=== PATIENT | male | born 1955 | race Caucasian/White ===

== ENCOUNTER 2019-06-11 08:13 | Emergency (ER) | payer OTHER ==
[~2019-06-11] VITALS: Ht 177.8 cm; Wt 73.5 kg
--- OUTSIDE RECORDS SUMMARY | 2019-06-11 08:16 | XMS REPORT | Continuity of Care Document ---
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 Name Role Phone [employer] Unavailable Unavailable Problems Problem Status Onset Date Classification Date Reported Comments Source SHOULDER PAIN Active 05/13/2013 [facility] Chronic obstructive pulmonary disease Active Problem [facility]23[facility]2019 [facility] Hy[facility] Active Problem 05/23/2019 [facility] Medications Medication Details Route Status Patient Instructions Ordering Provider Order Date Source Amlodipine 10 MG / valsartan 160 MG Oral Tablet 1 tab, PO, Daily, # 30 tab, 0 Refill(s), Pharmacy: [facility] Active 08/15/[facility] haloperidol 2 mg oral tablet 2 mg=1 tab, PO, BID, # 90 tab, 0 Refill(s) Active 08/15/2018 [facility] lithium 450 mg oral tablet, extended release 450 mg=1 tab, PO, BID, # 60 tab, 0 Refill(s) Active 08/15/2018 [facility] Amlodipine 10 mg, PO, Daily, 0 Refill(s) Inactive 08/15/2018 [facility] Bupropion 150 mg, PO, 0 Refill(s) Active 08/15/2018 [facility] Toradol 10 mg oral tablet 10 mg, 1 tab, PO, Q8H, PRN, 15 tab, Pain, Substitution Allowed, TAB PO Active [place] 05/14/2013 [facility] Allergies, Adverse Reactions, Alerts Substance Category Reaction Severity Reaction type Status Date Reported Comments Source No Known Medication Allergies Assertion Drug allergy [facility] Immunizations Immunization Date Given Site Status Last Updated Comments Source influenza virus vaccine, inactivated<sup>1</sup> 08/15/2018 Right deltoid completed French Result Comment: None [facility] pneumococcal 23-valent vaccine<sup>2</sup> 08/15/2018 Left deltoid completed French Result Comment: None reaction [facility] Results No Data Provided for This Section Pathology Reports No Data Provided for This Section Diagnostic Reports No Data Provided for This Section Consultation Notes No Data Provided for This Section Discharge Summaries No Data Provided for This Section History and Physicals No Data Provided for This Section Vital Signs Vital Sign Value Date Comments Source Weight 75.568 08/15/2018 [facility] BMI Calculated 23.9 08/15/2018 [facility] Height 177.8 cm 08/15/2018 [facility] Heart Rate 67 08/15/2018 [facility] Temperature Oral (F) 97.5 F 08/15/2018 [facility] Systolic (mm Hg) 145 08/15/2018 [facility] Diastolic (mm Hg) 86 08/15/2018 [facility] Weight 68.182 05/14/2013 [facility] Height 175.26 cm 05/14/2013 [facility] Encounters Location Location Details Encounter Type Encounter Number Reason For Visit Attending Provider ADM Date DC Date Status Source [facility] Emergency [id number] LEONARDO SAMPSON 05/13/2013 05/14/2013 Discharged [facility] Outpatient [id number] THEODORE MCCOLLUM 08/15/2018 [facility] Outpatient [id number] Theodore Mccollum 08/15/2018 08/16/2018 [facility] Phone Message [id number] 05/19/2019 05/21/2019 [facility] Procedures No Data Provided for This Section Assessment and Plan No Data Provided for This Section Plan of Care No Data Provided for This Section Social History Social History Date Source Social History TypeResponse Smoking Status Former smoker; Exposure to Tobacco Smoke None; Cigarette Smoking Last 365 Days Yes; Reg Smoking Cessation Counseling No1 entered on: 08/15/18 1quit 3 months ago 08/15/2018 [facility] Social History TypeResponse Smoking Status Former smoker; Exposure to Tobacco Smoke None; Cigarette Smoking Last 365 Days Yes; Reg Smoking Cessation Counseling No1 entered on: 08/15/18 1quit 3 months ago 08/15/2018 [facility] Family History No Data Provided for This Section Advance Directives No Data Provided for This Section Functional Status No Data Provided for This Section
--- OUTSIDE RECORDS SUMMARY | 2019-06-11 08:17 | XMS REPORT | Summary of Care ---
Author Author [facility] Neurosurgery [facility] Organization [facility] Neurosurgery [facility] Address Unknown Phone Unavailable Encounter HQ [id number]_[email or web address](FIN) [id number] Date(s): 05/19/19 - 05/20/19 [facility] Neurosurgery [facility] [address] [place] [address]- Vital Signs No data available for this section Problem List Condition Effective Dates Status Health Status Informant Chronic obstructive Active pulmonary disease(Confirmed) Hypertension(Confirm Active ed) Allergies, Adverse Reactions, Alerts No Known Medication Allergies Medications No data available for this section Results No data available for this section Immunizations Given and Recorded Vaccine Date Status Refusal Reason influenza virus vaccine, inactivated1 08/15/18 Given pneumococcal 23-valent vaccine2 08/15/18 Given 1Result Comment: None reaction waited 15 min 2Result Comment: None reaction waited 15 min Procedures No data available for this section Social History Social History Type Response Smoking Status Former smoker; Exposure to Tobacco Smoke None; Cigarette Smoking Last 365 Days Yes; Reg Smoking Cessation Counseling No1 entered on: 08/15/18 1quit 3 months ago Assessment and Plan No data available for this section
--- OUTSIDE RECORDS SUMMARY | 2019-06-11 08:17 | XMS REPORT | Summary of Care ---
Author Author [facility] Address Unknown Phone Unavailable Encounter TRENA Miller(KAE) [id number] Date(s): 08/15/18 - 08/15/18 [place] [id number] [facility] [address] [place] [address] [phone] Discharge Disposition: Home or Self Care Attending Physician: Valerie Chan MD Vital Signs Most recent to 1 oldest [Reference Range]: Height 177.8 cm (08/15/18 2:26 PM) Temperature Oral 97.5 DegF [96.4-99.1 DegF] (08/15/18 2:26 PM) Blood Pressure 145/86 mmHg [90-140/60-90 mmHg] *HI* (08/15/18 2:26 PM) Peripheral Pulse 67 bpm Rate [60-100 bpm] (08/15/18 2:26 PM) Weight 75.568 kg (08/15/18 2:26 PM) Body Mass Index 23.9 m2 (08/15/18 2:26 PM) Problem List Condition Effective Dates Status Health Status Informant Chronic obstructive Active pulmonary disease(Confirmed) Hypertension(Confirm Active ed) Allergies, Adverse Reactions, Alerts No Known Medication Allergies Medications amLODIPine 10 mg, PO, Daily, 0 Refill(s) Start Date: 08/15/18 Stop Date: 08/15/18 Status: Discontinued amLODIPine-valsartan 10 mg-160 mg oral tablet 1 tab, PO, Daily, # 30 tab, 0 Refill(s), Pharmacy: [facility] Start Date: 08/15/18 Status: Ordered buPROPion 150 mg, PO, 0 Refill(s) Start Date: 08/15/18 Status: Ordered haloperidol 2 mg oral tablet 2 mg=1 tab, PO, BID, # 90 tab, 0 Refill(s) Start Date: 08/15/18 Status: Ordered lithium 450 mg oral tablet, extended release 450 mg=1 tab, PO, BID, # 60 tab, 0 Refill(s) Start Date: 08/15/18 Status: Ordered Results No data available for this section [...]
--- OUTSIDE RECORDS SUMMARY | 2019-06-11 08:17 | XMS REPORT | CCD ---
Author Author Auto Generated Organization [facility] Address Unknown Phone Unavailable Care Team Providers Care Purchasing And Claims Supervisor Name Role Phone Palomo Barajas CP Allergies, Adverse Reactions, Alerts Substance Reaction Status NKDA Active Medications Medication Instructions Start Date End Date Status Toradol 10 mg oral 10 mg, 1 tab, PO, Q8H, PRN, 15 tab, 05/13/2013 05/18/2013 Ordered tablet Pain, Substitution Allowed, TAB Vital Signs Most recent to oldest [Reference Range]: 1 Height 175.26 cm (05/13/2013 20:40:00) Weight 68.182 kg (05/13/2013 20:40:00)
--- OUTSIDE RECORDS SUMMARY | 2019-06-11 08:18 | XMS REPORT ---
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 Allergies, Adverse Reactions, Alerts Allergy Name Allergy Type Status Severity Reaction(s) Onset Date Inactive Date Treating Clinician Comments No Known Allergies DA Active U 2014-08-18 00:00:00 Medications This patient has no known medications. Results Test Description Test Time Test Comments Text Results Atomic Results Result Comments - XR CHEST 1 V 2019-06-07 16:39:00 FAX: Lisandra Khan MD [phone] [place]: St: ADM Name: AMNA BERKOWITZ [facility] : 1955 Age/S: 63/M [address] Unit #: [id number] Loc: [address] [address] Phys: Lisandra Norris MD Acct: [id number] Dis Date: Status: ADM IN PHONE #: [phone] Exam Date: 06/07/2019 1619 FAX #: [phone] Reason: PLEURAL EFFUSION EXAMS: CPT CODE: [id number] XR CHEST 1 V 71638 REASON FOR EXAM: PLEURAL EFFUSION EXAM ORDER DATE: 06/07/2019 4:12 PM Ordering Kayleigh: Lisandra Norris MD PROCEDURE: - XR CHEST 1 V COMPARISON: 06/03/2019 FINDINGS: Portable AP frontal view of the chest obtained at 4:19 PM shows clear lungs without evidence of consolidation. There is no evidence of effusion. The heart size is within normal limits. Pulmonary vasculatures are unremarkable. IMPRESSION: Persistent mild elevation of the left hemidiaphragm at 1638 Reported and signed by: Xavi Nugent M.D. CC: Lisandra Norris MD Technologist: Viri Webber RT(R); CLARISA DIEHL RT(R) Trnscrd Date/Time/By: 06/07/2019 (6407) : By: [email or web address] Orig Print D/T: S: 06/07/2019 (8011) PAGE 1 Signed Report - CTA ABD AORTA IF LWEX RO 2019-06-06 22:01:00 Name: AMNA BERKOWITZ [facility] : 1955 Age/S: 63 / M [address] [facility] Unit #: [id number] Loc: [place] [address] Phys: Nae Aguero NP Acct: [id number] Dis Date: Status: ADM IN PHONE #: [phone] Exam Date: 06/06/20192131 FAX #: [phone] Reason: EVALUATE AORTIC ANEURYSM EXAMS: CPT CODE: [id number] [place] [address] REASON FOR EXAM: EVALUATE AORTIC ANEURYSM EXAM ORDER DATE: 06/06/2019 5:42 PM Ordering Kayleigh: Nae Aguero NP PROCEDURE: - CTA ABD AORTA IF LWEX RO COMPARISON: FINDINGS: Axial images of the abdomen and lower extremities runoff were obtained with IV contrast using CT angiogram protocol. Reconstructed sagittal and coronal images from the axial data were provided. Dose modulation, iterative reconstruction, and/or weight based adjustment of the MA/KV was utilized to reduce the radiation dose to as low as reasonably achievable. Maximum intensity pixel, Volume rendered, Surface shaded rendering, and 3D reconstructed images of the abdominal aorta and lower extremities runoff were provided for interpretation. Intravenous contrast: 100c of Omnipaque 370 The iliac arteries are within normal limits. The renal arteries are within normal limits. The celiac trunk is unremarkable. The hepatic and splenic arteries are unremarkable. The superior mesenteric and inferior mesenteric arteries are within normal limits IMPRESSION: 1. 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 Unremarkable bilateral SFA and popliteal arteries 3. On the left, 2 vessels runoff in the anterior and posterior tibial arteries with a small caliber and atrophic patent dorsalis pedis artery 4. On the right, a single vessel runoff in the posterior tibial artery to the right foot with a patent plantar arch. The right dorsalis pedis artery is occluded at 2200 Reported and signed by: Xavi Nugent M.D. PAGE 1 Signed Report (CONTINUED) Name: AMNA BERKOWITZ [facility] : 1955 Age/S: 63 / M [address] [facility] Unit #: [id number] Loc: [place] [address] Phys: Nae Aguero NP Acct: [id number] Dis Date: Status: ADM IN PHONE #: [phone] Exam Date: 06/06/20192131 FAX #: [phone] Reason: EVALUATE AORTIC ANEURYSM EXAMS: CPT CODE: [id number] [place] [id number] <Continued> CC: Lisandra Norris MD; Nae Aguero NP Technologist:Stephie Barnard RT(R); MARQUITA Ross CTDI: DLP: Trnscb Date/Time: 06/06/2019 (2200) tTHALIA Orig Print D/T: S: 06/06/2019 (2203) PAGE 2 Signed Report LITHIUM 2019-06-04 19:54:00 LITHIUM (test code=LITH) <0.1 mmol/L 0.5-1.5 BASIC METABOLIC [id number] 10:18:00* Test Item Value Reference Range Comments SODIUM (test code=NA) 145 mmol/L 136-145 POTASSIUM (test code=K) 3.8 mmol/L 3.5-5.1 CHLORIDE (test code=CL) 110.0 mmol/L 98-107 CARBON DIOXIDE (test code=CO2) 27.0 mmol/L 21-32 ANION GAP (test code=GAP) 11.8 10-20 GLUCOSE (test code=GLU) 90 mg/dL 74-106 BLOOD UREA NITROGEN (test code=BUN) 17 mg/dL 7-18 GLOMERULAR FILTRATION RATE (test code=GFR) > 60 mL/min >=60 Estimated GFR by using Modified MDRD formula.Chronic kidney disease is defined as either kidney damageor GFR <60 mL/min/1.73 m2 for >3 months. CREATININE (test code=CREAT) 1.00 mg/dL 0.7-1.3 BUN/CREATININE RATIO (test code=BUN/CREA) 17.0 10-20 CALCIUM (test code=CA) 8.9 mg/dL 8.5-10.1 [id number] 10:18:00* Test Item Value Reference Range Comments PHOSPHORUS (test code=PHOS) 3.2 mg/dL 2.5-4.9 [id number] 10:18:00* Test Item Value Reference Range Comments MAGNESIUM (test code=MAG) 2.2 mg/dL 1.8-2.4 CALCIUM [id number] 10:18:00* Test Item Value Reference Range Comments CALCIUM IONIZED (test code=SHAKILA) 1.30 mmol/L 1.12-1.32 BASIC METABOLIC [id number] 10:04:00* Test Item Value Reference Range Comments SODIUM (test code=NA) 145 mmol/L 136-145 POTASSIUM (test code=K) 3.8 mmol/L 3.5-5.1 CHLORIDE (test code=CL) 110.0 mmol/L 98-107 CARBON DIOXIDE (test code=CO2) 27.0 mmol/L 21-32 ANION GAP (test code=GAP) 11.8 10-20 GLUCOSE (test code=GLU) 90 mg/dL 74-106 BLOOD UREA NITROGEN (test code=BUN) 17 mg/dL 7-18 GLOMERULAR FILTRATION RATE (test code=GFR) > 60 mL/min >=60 Estimated GFR by using Modified MDRD formula.Chronic kidney disease is defined as either kidney damageor GFR <60 mL/min/1.73 m2 for >3 months. CREATININE (test code=CREAT) 1.00 mg/dL 0.7-1.3 BUN/CREATININE RATIO (test code=BUN/CREA) 17.0 10-20 CALCIUM (test code=CA) 8.9 mg/dL 8.5-10.1 [id number] 10:04:00* Test Item Value Reference Range Comments PHOSPHORUS (test code=PHOS) 3.2 mg/dL 2.5-4.9 [id number] 10:04:00* Test Item Value Reference Range Comments MAGNESIUM (test code=MAG) 2.2 mg/dL 1.8-2.4 CALCIUM [id number] 10:04:00* Test Item Value Reference Range Comments CALCIUM IONIZED (test code=SHAKILA) mmol/L 1.12-1.32 CBC W/AUTO [id number] 08:54:00* Test Item Value Reference Range Comments WHITE BLOOD CELL (test code=WBC) 9.2 K/mm3 4.5-12.5 RED BLOOD CELL (test code=RBC) 4.10 mill/mm3 4.0-5.8 HEMOGLOBIN (test code=HGB) 11.6 gram/dL 13.0-17.5 HEMATOCRIT (test code=HCT) 38.0 % 42.0-52.0 MEAN CELL VOLUME (test code=MCV) 92.7 fL 80-98 MEAN CELL HGB (test code=MCH) 28.3 picogram 27.0-33.0 MEAN CELL HGB CONCETRATION (test code=MCHC) 30.5 gram/dL 33.0-36.0 RED CELL DISTRIBUTION WIDTH (test code=RDW) 13.5 % 11.6-16.2 RED CELL DISTRIBUTION WIDTH SD (test code=RDW-SD) 46.2 fL 37.0-51.0 PLATELET COUNT (test code=PLT) 238 K/mm3 150-450 MEAN PLATELET VOLUME (test code=MPV) 10.1 fL 6.7-11.0 NEUTROPHIL % (test code=NT%) 80.9 % 39.0-69.0 IMMATURE GRANULOCYTE % (test code=IG%) 0.5 % 0.0-5.0 LYMPHOCYTE % (test code=LY%) 9.2 % 25.0-55.0 MONOCYTE % (test code=MO%) 7.9 % 0.0-10.0 EOSINOPHIL % (test code=EO%) 1.3 % 0.0-5.0 BASOPHIL % (test code=BA%) 0.2 % 0.0-1.0 NUCLEATED RBC % (test code=NRBC%) 0.0 % 0-0 NEUTROPHIL # (test code=NT#) 7.45 K/mm3 1.8-7.7 IMMATURE GRANULOCYTE # (test code=IG#) 0.05 x10 3/uL 0-0.03 LYMPHOCYTE # (test code=LY#) 0.85 K/mm3 1.0-5.0 MONOCYTE # (test code=MO#) 0.73 K/mm3 0-0.8 EOSINOPHIL # (test code=EO#) 0.12 K/mm3 0.0-0.5 BASOPHIL # (test code=BA#) 0.02 K/mm3 0.0-0.2 NUCLEATED RBC # (test code=NRBC#) 0.00 K/mm3 0.0-0.1 MANUAL DIFF REQUIRED (test code=MDIFF) NO - XR CHEST 1 [id number] 07:28:00 FAX: Patsy Card MD [phone] [place]: St: [facility] FAX: Lisandra Khan MD [phone] Name: AMNA BERKOWITZ [facility] : 1955 Age/S: 63/M [address] [facility] Unit #: [id number] Loc: [place] [place] [address] Phys: Patsy Bales MD Acct: [id number] Dis Date: Status: ADM IN PHONE #: [phone] Exam Date: 06/02/2019627 FAX #: [phone] Reason: NG TUBE PLACEMENT EXAMS: CPT CODE: [id number] XR CHEST 1 V 75836 REASON FOR EXAM: NG TUBE PLACEMENT Exam Order Date: 06/02/2019 7:46 PM Ordering MSahil.: Patsy Bales MD PROCEDURE: - XR CHEST 1 V COMPARISON: AP chest x-ray previous evening at 6:19 PM FINDINGS: Elevation of the left hemidiaphragm with atelectatic changes in the left lung base and subsegmental atelectasis in the right retrocardiac space are redemonstrated. Remainder of the lungs are clear. Cardiomediastinal silhouette is normal in size for technique. The mediastinal contours are within normal limits. Musculoskeletal structures are within normal limits. Interval insertion of enteric suction tube into the stomach. IMPRESSION: Interval insertion of enteric suction tube into the stomach. Cardiopulmonary findings are unchanged. at 0728 Reported and signed by: Uriah Castro MD CC: Patsy Bales MD; Lisandra Norris MD Technologist: ЮЛИЯ HERNANDEZ JR Trnscrd Date/Time/By: 06/03/2019 (0728) : By: [email or web address] Orig Print D/T: S: 06/03/2019 (0731) PAGE 1 Signed Report - XR CHEST 1 [id number] 18:31:00 FAX: Lisandra Khan MD [phone] [place]: St: ADM Name: AMNA CONTRERAS [facility] : [birth year] Age/S: 63/M [address] Unit #: [id number] Loc: [address] [place] [address] Phys: Lisandra Norris MD Acct: [id number] Dis Date: Status: ADM IN PHONE #: [phone] Exam Date: 06/02/2019 1825 FAX #: [phone] Reason: NGTUBE PLACEMENT EXAMS: CPT CODE: [id number] XR CHEST 1 V 83661 REASON FOR EXAM: NGTUBE PL ACEMENT EXAM ORDER DATE: 06/02/2019 12:00 AM Ordering Kayleigh: Lisandra Norris MD PROCEDURE: - XR CHEST 1 V COMPARISON: 06/02/2019 at 7:44 AM FINDINGS: Portable AP frontal vi ew of the chest obtained at 6:21 PM shows patchy airspace opacity at the l eft base. There is no evidence of effusion. The heart size is within elizabeth l limits. Pulmonary vasculatures are unremarkable. IMPRES LISA: No NG tube visualized at 1831 Reported and signed by: Xavi Nugent M.D. CC: Lisandra Norris MD Technologist: Cloten Solitario, RT(R; ... Trnscrd Date/Time/By: 06/02/2019 (1830) : By: [email or web address] Orig Print D/T: S: (1836) PAGE 1 Signed Rep ort - XR CHEST 1 [id number] 08:23:00 FAX: Lisandra Khan MD [phone] [place]: B St: ADM FAX: Asuncion Morales NP [phone] Name: AMNA BERKOWITZ [facility] : 1955 Age/S: 63/M [address] Unit #: [id number] Loc: [id number] [place] [address] Phys: Asuncion Morales NP Acct: [id number] Dis Date: Status: ADM IN PHONE #: [phone] Exam Date: 06/02/2019 07 FAX #: [phone] Reason: sob EXAMS: CPT CODE: [id number] XR CHEST 1 V 14255 REASON FOR EXAM: sob Exam Order Date: 06/02/2019 5:00 AM Ordering Kayleigh: Asuncion Morales NP PROCEDURE: - XR CHEST 1 V COMPARISON: AP chest x-ray the previous day FINDINGS: The lungs are better aerated from the prior exam. However lung volumes remain diminished and there is also elevation of the left hemidiaphragm as well as residual opacity in the left lung base and infrahilar right lung. Cardiomediastinal silhouette is normal in size for technique. The mediastinal contours are within normal limits. Musculoskeletal structures are within normal limits. The visualized upper abdomen is within normal limits. IMPRESSION: Improved aeration of the lung bases. Residual opacities, wor se on the left side, may represent subsegmental atelectasis and/or conso lidation. Layering pleural effusion on the left side cannot be excluded. at 0823 Reported and signed by: Uriah Castro MD CC: Barrett Norris MD; Asuncion Morales NP Technologist: RT JEAN-PAUL(R); Helen Del Rio(R) Trnscrd Date/Time/By: 06/02/2019 (08) : By : [email or web address] Orig Print D/T: S: 06/02/2019 (826) PAGE 1 Signed Report BASIC METABOLIC [id number] 06:06:00* Test Item Value Reference Range Comments SODIUM (test code=NA) 144 mmol/L 136-145 POTASSIUM (test code=K) 3.7 mmol/L 3.5-5.1 CHLORIDE (test code=CL) 108.0 mmol/L 98-107 CARBON DIOXIDE (test code=CO2) 31.0 mmol/L 21-32 ANION GAP (test code=GAP) 8.7 10-20 GLUCOSE (test code=GLU) 113 mg/dL 74-106 BLOOD UREA NITROGEN (test code=BUN) 13 mg/dL 7-18 GLOMERULAR FILTRATION RATE (test code=GFR) > 60 mL/min >=60 Estimated GFR by using Modified MDRD formula.Chronic kidney disease is defined as either kidney damageor GFR <60 mL/min/1.73 m2 for >3 months. CREATININE (test code=CREAT) 1.00 mg/dL 0.7-1.3 BUN/CREATININE RATIO (test code=BUN/CREA) 13.2 10-20 CALCIUM (test code=CA) 9.3 mg/dL 8.5-10.1 [id number] 06:06:00* Test Item Value Reference Range Comments PHOSPHORUS (test code=PHOS) 2.7 mg/dL 2.5-4.9 [id number] 06:06:00* Test Item Value Reference Range Comments MAGNESIUM (test code=MAG) 2.2 mg/dL 1.8-2.4 CALCIUM [id number] 06:06:00* Test Item Value Reference Range Comments CALCIUM IONIZED (test code=SHAKILA) 1.33 mmol/L 1.12-1.32 BASIC METABOLIC [id number] 05:58:00* Test Item Value Reference Range Comments SODIUM (test code=NA) 144 mmol/L 136-145 POTASSIUM (test code=K) 3.7 mmol/L 3.5-5.1 CHLORIDE (test code=CL) 108.0 mmol/L 98-107 CARBON DIOXIDE (test code=CO2) mmol/L 21-32 ANION GAP (test code=GAP) 10-20 GLUCOSE (test code=GLU) mg/dL 74-106 BLOOD UREA NITROGEN (test code=BUN) mg/dL 7-18 GLOMERULAR FILTRATION RATE (test code=GFR) mL/min >=60 CREATININE (test code=CREAT) mg/dL 0.7-1.3 BUN/CREATININE RATIO (test code=BUN/CREA) 10-20 CALCIUM (test code=CA) mg/dL 8.5-10.1 [id number] 05:58:00* Test Item Value Reference Range Comments PHOSPHORUS (test code=PHOS) mg/dL 2.5-4.9 [id number] 05:58:00* Test Item Value Reference Range Comments MAGNESIUM (test code=MAG) mg/dL 1.8-2.4 CALCIUM [id number] 05:58:00* Test Item Value Reference Range Comments CALCIUM IONIZED (test code=SHAKILA) mmol/L 1.12-1.32 BASIC METABOLIC [id number] 05:58:00* Test Item Value Reference Range Comments SODIUM (test code=NA) 144 mmol/L 136-145 POTASSIUM (test code=K) 3.7 mmol/L 3.5-5.1 CHLORIDE (test code=CL) 108.0 mmol/L 98-107 CARBON DIOXIDE (test code=CO2) mmol/L 21-32 ANION GAP (test code=GAP) 10-20 GLUCOSE (test code=GLU) mg/dL 74-106 BLOOD UREA NITROGEN (test code=BUN) mg/dL 7-18 GLOMERULAR FILTRATION RATE (test code=GFR) mL/min >=60 CREATININE (test code=CREAT) mg/dL 0.7-1.3 BUN/CREATININE RATIO (test code=BUN/CREA) 10-20 CALCIUM (test code=CA) mg/dL 8.5-10.1 [id number] 05:58:00* Test Item Value Reference Range Comments PHOSPHORUS (test code=PHOS) mg/dL 2.5-4.9 [id number] 05:58:00* Test Item Value Reference Range Comments MAGNESIUM (test code=MAG) mg/dL 1.8-2.4 CALCIUM [id number] 05:58:00* Test Item Value Reference Range Comments CALCIUM IONIZED (test code=SHAKILA) 1.33 mmol/L 1.12-1.32 CBC W/AUTO [id number] 05:24:00* Test Item Value Reference Range Comments WHITE BLOOD CELL (test code=WBC) 9.2 K/mm3 4.5-12.5 RED BLOOD CELL (test code=RBC) 3.99 mill/mm3 4.0-5.8 HEMOGLOBIN (test code=HGB) 11.5 gram/dL 13.0-17.5 HEMATOCRIT (test code=HCT) 36.6 % 42.0-52.0 MEAN CELL VOLUME (test code=MCV) 91.7 fL 80-98 MEAN CELL HGB (test code=MCH) 28.8 picogram 27.0-33.0 MEAN CELL HGB CONCETRATION (test code=MCHC) 31.4 gram/dL 33.0-36.0 RED CELL DISTRIBUTION WIDTH (test code=RDW) 13.4 % 11.6-16.2 RED CELL DISTRIBUTION WIDTH SD (test code=RDW-SD) 45.7 fL 37.0-51.0 PLATELET COUNT (test code=PLT) 247 K/mm3 150-450 MEAN PLATELET VOLUME (test code=MPV) 9.7 fL 6.7-11.0 NEUTROPHIL % (test code=NT%) 81.1 % 39.0-69.0 IMMATURE GRANULOCYTE % (test code=IG%) 0.5 % 0.0-5.0 LYMPHOCYTE % (test code=LY%) 9.6 % 25.0-55.0 MONOCYTE % (test code=MO%) 7.8 % 0.0-10.0 EOSINOPHIL % (test code=EO%) 0.8 % 0.0-5.0 BASOPHIL % (test code=BA%) 0.2 % 0.0-1.0 NUCLEATED RBC % (test code=NRBC%) 0.0 % 0-0 NEUTROPHIL # (test code=NT#) 7.42 K/mm3 1.8-7.7 IMMATURE GRANULOCYTE # (test code=IG#) 0.05 x10 3/uL 0-0.03 LYMPHOCYTE # (test code=LY#) 0.88 K/mm3 1.0-5.0 MONOCYTE # (test code=MO#) 0.71 K/mm3 0-0.8 EOSINOPHIL # (test code=EO#) 0.07 K/mm3 0.0-0.5 BASOPHIL # (test code=BA#) 0.02 K/mm3 0.0-0.2 NUCLEATED RBC # (test code=NRBC#) 0.00 K/mm3 0.0-0.1 MANUAL DIFF REQUIRED (test code=MDIFF) NO - XR CHEST 1 [id number] 07:30:00 FAX: Lisandra Khan MD [phone] [place]: B St: [facility] FAX: Asuncion Morales NP [phone] Name: AMNA BERKOWITZ [facility] : 1955 Age/S: 63/M [address] [place] Unit #: [id number] Loc: [place] [place] [address] Phys: Asuncion Morales [employer] Acct: [id number] Dis Date: Status: ADM IN PHONE #: [phone] Exam Date: 06/01/2019 0535 FAX #: [phone] Reason: sob EXAMS: CPT CODE: [id number] XR CHEST 1 V 91271 HISTORY: Shortness of breath TECHNIQUE: AP chest x-ray COMPARISON: Previous day IMPRESSION: Persistent bibasilar atelectasis and small left pleural effusion. Normal heart size. Atherosclerotic vascular calcification of the thoracic aorta. NG tube positioned within the gastric fundus. at 0730 Reported and signed by: Marsha Stone D.O. CC: Lisandra Norris MD; Asuncion Morales NP Technologist: ANDRE BAZAN RT; CHAD TURPIN RT(R) Trnscrd Date/Time/By: 06/01/2019 (0730) : By: jatin [email or web address] Orig Print D/T: S: 06/01/2019 (0733) P AGE 2 Signed Report BASIC METABOLIC [id number] 07:17:00* Test Item Value Reference Range Comments SODIUM (test code=NA) 148 mmol/L 136-145 POTASSIUM (test code=K) 3.6 mmol/L 3.5-5.1 CHLORIDE (test code=CL) 111.0 mmol/L 98-107 CARBON DIOXIDE (test code=CO2) 33.0 mmol/L 21-32 ANION GAP (test code=GAP) 7.6 10-20 GLUCOSE (test code=GLU) 103 mg/dL 74-106 BLOOD UREA NITROGEN (test code=BUN) 7 mg/dL 7-18 GLOMERULAR FILTRATION RATE (test code=GFR) > 60 mL/min >=60 Estimated GFR by using Modified MDRD formula.Chronic kidney disease is defined as either kidney damageor GFR <60 mL/min/1.73 m2 for >3 months. CREATININE (test code=CREAT) 1.10 mg/dL 0.7-1.3 BUN/CREATININE RATIO (test code=BUN/CREA) 6.6 10-20 CALCIUM (test code=CA) 9.0 mg/dL 8.5-10.1 [id number] 07:17:00* Test Item Value Reference Range Comments PHOSPHORUS (test code=PHOS) 2.4 mg/dL 2.5-4.9 [id number] 07:17:00* Test Item Value Reference Range Comments MAGNESIUM (test code=MAG) 2.3 mg/dL 1.8-2.4 CALCIUM [id number] 07:17:00* Test Item Value Reference Range Comments CALCIUM IONIZED (test code=SHAKILA) 1.29 mmol/L 1.12-1.32 BASIC METABOLIC [id number] 07:13:00* Test Item Value Reference Range Comments SODIUM (test code=NA) 148 mmol/L 136-145 POTASSIUM (test code=K) 3.6 mmol/L 3.5-5.1 CHLORIDE (test code=CL) 111.0 mmol/L 98-107 CARBON DIOXIDE (test code=CO2) mmol/L 21-32 ANION GAP (test code=GAP) 10-20 GLUCOSE (test code=GLU) mg/dL 74-106 BLOOD UREA NITROGEN (test code=BUN) mg/dL 7-18 GLOMERULAR FILTRATION RATE (test code=GFR) mL/min >=60 CREATININE (test code=CREAT) mg/dL 0.7-1.3 BUN/CREATININE RATIO (test code=BUN/CREA) 10-20 CALCIUM (test code=CA) mg/dL 8.5-10.1 [id number] 07:13:00* Test Item Value Reference Range Comments PHOSPHORUS (test code=PHOS) mg/dL 2.5-4.9 [id number] 07:13:00* Test Item Value Reference Range Comments MAGNESIUM (test code=MAG) mg/dL 1.8-2.4 CALCIUM [id number] 07:13:00* Test Item Value Reference Range Comments CALCIUM IONIZED (test code=SHAKILA) 1.29 mmol/L 1.12-1.32 BASIC METABOLIC [id number] 07:06:00* Test Item Value Reference Range Comments SODIUM (test code=NA) 148 mmol/L 136-145 POTASSIUM (test code=K) 3.6 mmol/L 3.5-5.1 CHLORIDE (test code=CL) 111.0 mmol/L 98-107 CARBON DIOXIDE (test code=CO2) mmol/L 21-32 ANION GAP (test code=GAP) 10-20 GLUCOSE (test code=GLU) mg/dL 74-106 BLOOD UREA NITROGEN (test code=BUN) mg/dL 7-18 GLOMERULAR FILTRATION RATE (test code=GFR) mL/min >=60 CREATININE (test code=CREAT) mg/dL 0.7-1.3 BUN/CREATININE RATIO (test code=BUN/CREA) 10-20 CALCIUM (test code=CA) mg/dL 8.5-10.1 [id number] 07:06:00* Test Item Value Reference Range Comments PHOSPHORUS (test code=PHOS) mg/dL 2.5-4.9 [id number] 07:06:00* Test Item Value Reference Range Comments MAGNESIUM (test code=MAG) mg/dL 1.8-2.4 CALCIUM [id number] 07:06:00* Test Item Value Reference Range Comments CALCIUM IONIZED (test code=SHAKILA) mmol/L 1.12-1.32 CBC W/AUTO [id number] 06:48:00* Test Item Value Reference Range Comments WHITE BLOOD CELL (test code=WBC) 11.2 K/mm3 4.5-12.5 RED BLOOD CELL (test code=RBC) 4.11 mill/mm3 4.0-5.8 HEMOGLOBIN (test code=HGB) 11.5 gram/dL 13.0-17.5 HEMATOCRIT (test code=HCT) 37.4 % 42.0-52.0 MEAN CELL VOLUME (test code=MCV) 91.0 fL 80-98 MEAN CELL HGB (test code=MCH) 28.0 picogram 27.0-33.0 MEAN CELL HGB CONCETRATION (test code=MCHC) 30.7 gram/dL 33.0-36.0 RED CELL DISTRIBUTION WIDTH (test code=RDW) 13.4 % 11.6-16.2 RED CELL DISTRIBUTION WIDTH SD (test code=RDW-SD) 44.9 fL 37.0-51.0 PLATELET COUNT (test code=PLT) 248 K/mm3 150-450 MEAN PLATELET VOLUME (test code=MPV) 9.9 fL 6.7-11.0 NEUTROPHIL % (test code=NT%) 84.7 % 39.0-69.0 IMMATURE GRANULOCYTE % (test code=IG%) 0.4 % 0.0-5.0 LYMPHOCYTE % (test code=LY%) 7.8 % 25.0-55.0 MONOCYTE % (test code=MO%) 6.4 % 0.0-10.0 EOSINOPHIL % (test code=EO%) 0.5 % 0.0-5.0 BASOPHIL % (test code=BA%) 0.2 % 0.0-1.0 NUCLEATED RBC % (test code=NRBC%) 0.0 % 0-0 NEUTROPHIL # (test code=NT#) 9.45 K/mm3 1.8-7.7 IMMATURE GRANULOCYTE # (test code=IG#) 0.05 x10 3/uL 0-0.03 LYMPHOCYTE # (test code=LY#) 0.87 K/mm3 1.0-5.0 MONOCYTE # (test code=MO#) 0.72 K/mm3 0-0.8 EOSINOPHIL # (test code=EO#) 0.06 K/mm3 0.0-0.5 BASOPHIL # (test code=BA#) 0.02 K/mm3 0.0-0.2 NUCLEATED RBC # (test code=NRBC#) 0.00 K/mm3 0.0-0.1 - XR CHEST 1 [id number] 17:43:00 FAX: Lisandra Khan MD [phone] [place]: [address] St: [facility] FAX: Asuncion Morales NP [phone] Name: AMNA BERKOWITZ [facility] : 1955 Age/S: 63/M [address] [facility] Unit #: [id number] Loc: V.S20 [place] [id number] Phys: Asuncion Morales [employer] Acct: [id number] Dis Date: Status: ADM IN PHONE #: [phone] Exam Date: 05/31/2019 1659 FAX #: [phone] Reason: NG TUBE PLACEMENT EXAMS: CPT CODE: [id number] XR CHEST 1 V 41191 HISTORY: NG TUBE PLACEMENT TECHNIQUE: AP chest x-ray COMPARISON: Same date, 11 hours earlier IMPRESSION: Persistent bibasilar atelectasis and small left pleural effusion. Normal heart size. Atherosclerotic vascular calcification of the thoracic aorta. ET tube has been removed. NG tube positioned within the gastric fundus. at 0068 Reported and signed by: Marsha Stone D.O. CC: Lisandra Norris MD; Asuncion Morales NP Technologist: FREEMAN KENDRICK RT (R); CLARISA DIEHL RT(R) Trnscrd Date/Time/By: 05/31/2019 (7647) : By: [email or web address] Orig Print D/T: S: 05/31/2019 (0644) PAGE 1 Signed Report BASIC METABOLIC [id number] 16:18:00* Test Item Value Reference Range Comments SODIUM (test code=NA) 148 mmol/L 136-145 POTASSIUM (test code=K) 3.0 mmol/L 3.5-5.1 CHLORIDE (test code=CL) 105.0 mmol/L 98-107 CARBON DIOXIDE (test code=CO2) 38.0 mmol/L 21-32 ANION GAP (test code=GAP) 8.0 10-20 GLUCOSE (test code=GLU) 142 mg/dL 74-106 BLOOD UREA NITROGEN (test code=BUN) 6 mg/dL 7-18 GLOMERULAR FILTRATION RATE (test code=GFR) > 60 mL/min >=60 Estimated GFR by using Modified MDRD formula.Chronic kidney disease is defined as either kidney damageor GFR <60 mL/min/1.73 m2 for >3 months. CREATININE (test code=CREAT) 1.00 mg/dL 0.7-1.3 BUN/CREATININE RATIO (test code=BUN/CREA) 6.0 10-20 CALCIUM (test code=CA) 8.3 mg/dL 8.5-10.1 [id number] 16:18:00* Test Item Value Reference Range Comments PHOSPHORUS (test code=PHOS) 2.2 mg/dL 2.5-4.9 [id number] 16:18:00* Test Item Value Reference Range Comments MAGNESIUM (test code=MAG) 1.7 mg/dL 1.8-2.4 OSMOLALITY [id number] 16:18:00* Test Item Value Reference Range Comments OSMOLALITY SERUM (test code=OSMO) 306.5 mOsm/kg 275-295 CALCIUM [id number] 16:18:00* Test Item Value Reference Range Comments CALCIUM IONIZED (test code=SHAKILA) 1.18 mmol/L 1.12-1.32 BASIC METABOLIC [id number] 16:10:00* Test Item Value Reference Range Comments SODIUM (test code=NA) 148 mmol/L 136-145 POTASSIUM (test code=K) 3.0 mmol/L 3.5-5.1 CHLORIDE (test code=CL) 105.0 mmol/L 98-107 CARBON DIOXIDE (test code=CO2) mmol/L 21-32 ANION GAP (test code=GAP) 10-20 GLUCOSE (test code=GLU) mg/dL 74-106 BLOOD UREA NITROGEN (test code=BUN) mg/dL 7-18 GLOMERULAR FILTRATION RATE (test code=GFR) mL/min >=60 CREATININE (test code=CREAT) mg/dL 0.7-1.3 BUN/CREATININE RATIO (test code=BUN/CREA) 10-20 CALCIUM (test code=CA) mg/dL 8.5-10.1 [id number] 16:10:00* Test Item Value Reference Range Comments PHOSPHORUS (test code=PHOS) mg/dL 2.5-4.9 [id number] 16:10:00* Test Item Value Reference Range Comments MAGNESIUM (test code=MAG) mg/dL 1.8-2.4 OSMOLALITY [id number] 16:10:00* Test Item Value Reference Range Comments OSMOLALITY SERUM (test code=OSMO) 306.5 mOsm/kg 275-295 CALCIUM [id number] 16:10:00* Test Item Value Reference Range Comments CALCIUM IONIZED (test code=SHAKILA) 1.18 mmol/L 1.12-1.32 BASIC METABOLIC [id number] 16:09:00* Test Item Value Reference Range Comments SODIUM (test code=NA) mmol/L 136-145 POTASSIUM (test code=K) mmol/L 3.5-5.1 CHLORIDE (test code=CL) mmol/L 98-107 CARBON DIOXIDE (test code=CO2) mmol/L 21-32 ANION GAP (test code=GAP) 10-20 GLUCOSE (test code=GLU) mg/dL 74-106 BLOOD UREA NITROGEN (test code=BUN) mg/dL 7-18 GLOMERULAR FILTRATION RATE (test code=GFR) mL/min >=60 CREATININE (test code=CREAT) mg/dL 0.7-1.3 BUN/CREATININE RATIO (test code=BUN/CREA) 10-20 CALCIUM (test code=CA) mg/dL 8.5-10.1 [id number] 16:09:00* Test Item Value Reference Range Comments PHOSPHORUS (test code=PHOS) mg/dL 2.5-4.9 [id number] 16:09:00* Test Item Value Reference Range Comments MAGNESIUM (test code=MAG) mg/dL 1.8-2.4 OSMOLALITY [id number] 16:09:00* Test Item Value Reference Range Comments OSMOLALITY SERUM (test code=OSMO) 306.5 mOsm/kg 275-295 CALCIUM [id number] 16:09:00* Test Item Value Reference Range Comments CALCIUM IONIZED (test code=SHAKILA) 1.18 mmol/L 1.12-1.32 BASIC METABOLIC [id number] 16:05:00* Test Item Value Reference Range Comments SODIUM (test code=NA) mmol/L 136-145 POTASSIUM (test code=K) mmol/L 3.5-5.1 CHLORIDE (test code=CL) mmol/L 98-107 CARBON DIOXIDE (test code=CO2) mmol/L 21-32 ANION GAP (test code=GAP) 10-20 GLUCOSE (test code=GLU) mg/dL 74-106 BLOOD UREA NITROGEN (test code=BUN) mg/dL 7-18 GLOMERULAR FILTRATION RATE (test code=GFR) mL/min >=60 CREATININE (test code=CREAT) mg/dL 0.7-1.3 BUN/CREATININE RATIO (test code=BUN/CREA) 10-20 CALCIUM (test code=CA) mg/dL 8.5-10.1 [id number] 16:05:00* Test Item Value Reference Range Comments PHOSPHORUS (test code=PHOS) mg/dL 2.5-4.9 [id number] 16:05:00* Test Item Value Reference Range Comments MAGNESIUM (test code=MAG) mg/dL 1.8-2.4 OSMOLALITY [id number] 16:05:00* Test Item Value Reference Range Comments OSMOLALITY SERUM (test code=OSMO) mOsm/kg 275-295 CALCIUM [id number] 16:05:00* Test Item Value Reference Range Comments CALCIUM IONIZED (test code=SHAKILA) 1.18 mmol/L 1.12-1.32 UR OSMOLALITY [id number] 16:04:00* Test Item Value Reference Range Comments UR OSMOLALITY RANDOM (test code=OSMOU) 344 mOsm/kg 48-962 CBC W/AUTO [id number] 06:56:00* Test Item Value Reference Range Comments WHITE BLOOD CELL (test code=WBC) 14.6 K/mm3 4.5-12.5 RED BLOOD CELL (test code=RBC) 4.16 mill/mm3 4.0-5.8 HEMOGLOBIN (test code=HGB) 11.7 gram/dL 13.0-17.5 HEMATOCRIT (test code=HCT) 36.8 % 42.0-52.0 MEAN CELL VOLUME (test code=MCV) 88.5 fL 80-98 MEAN CELL HGB (test code=MCH) 28.1 picogram 27.0-33.0 MEAN CELL HGB CONCETRATION (test code=MCHC) 31.8 gram/dL 33.0-36.0 RED CELL DISTRIBUTION WIDTH (test code=RDW) 13.5 % 11.6-16.2 RED CELL DISTRIBUTION WIDTH SD (test code=RDW-SD) 43.8 fL 37.0-51.0 PLATELET COUNT (test code=PLT) 207 K/mm3 150-450 MEAN PLATELET VOLUME (test code=MPV) 10.2 fL 6.7-11.0 NEUTROPHIL % (test code=NT%) 89.2 % 39.0-69.0 IMMATURE GRANULOCYTE % (test code=IG%) 0.4 % 0.0-5.0 LYMPHOCYTE % (test code=LY%) 4.2 % 25.0-55.0 MONOCYTE % (test code=MO%) 4.8 % 0.0-10.0 EOSINOPHIL % (test code=EO%) 1.2 % 0.0-5.0 BASOPHIL % (test code=BA%) 0.2 % 0.0-1.0 NUCLEATED RBC % (test code=NRBC%) 0.0 % 0-0 NEUTROPHIL # (test code=NT#) 13.06 K/mm3 1.8-7.7 IMMATURE GRANULOCYTE # (test code=IG#) 0.06 x10 3/uL 0-0.03 LYMPHOCYTE # (test code=LY#) 0.62 K/mm3 1.0-5.0 MONOCYTE # (test code=MO#) 0.70 K/mm3 0-0.8 EOSINOPHIL # (test code=EO#) 0.17 K/mm3 0.0-0.5 BASOPHIL # (test code=BA#) 0.03 K/mm3 0.0-0.2 NUCLEATED RBC # (test code=NRBC#) 0.00 K/mm3 0.0-0.1 NO CBC SENT RN NO ANSWER V.LAB.KP2 05/31/19 0457- XR CHEST 1 [id number] 06:51:00 FAX: Lisandra Khan MD [phone] [place]: B St: [facility] FAX: Asuncion Morales NP [phone] Name: AMNA BERKOWITZ [facility] : 1955 Age/S: 63/M [address] [facility] Unit #: [id number] [facility] [place] [address] Phys: Asuncion Morales NP Acct: [id number] Dis Date: Status: ADM IN PHONE #: [phone] Exam Date: 05/31/2019 0558 FAX #: [phone] Reason: sob EXAMS: CPT CODE: [id number] XR CHEST 1 V 70356 REASON FOR EXAM: sob EXAM ORDER DATE: 05/31/2019 5:00 AM Ordering Kayleigh: Asuncion Morales NP PROCEDURE: - XR CHEST 1 V COMPARISON: 05/30/2019 FINDINGS: Portable AP frontal view of the chest obtained at 5:16 AM shows patchy airspace opacity of the bases. There is no evidence of effusion. The heart size is minimally enlarged. Pulmonary vasculatures are minimally congested. Stable appearance of the ET tube and OG tube. IMPRESSION: Patchy airspace opacity in the bases suggestive of atelectasis with probable small left pleural effusion at 0651 Reported and signed by: Xavi Nugent M.D. CC: Lisandra Norris MD; Asuncion Morales NP Technologist: Salvador Singh RT(R); CHAD TURPIN RT(R) Trnscrd Date/Time/By: 05/31/2019 (0651) : By: DawnaVTL Orig Print D/T: S: 05/31/2019 (0654) PAGE 1 Signed Report BASIC METABOLIC [id number] 05:33:00* Test Item Value Reference Range Comments SODIUM (test code=NA) 148 mmol/L 136-145 POTASSIUM (test code=K) 3.8 mmol/L 3.5-5.1 CHLORIDE (test code=CL) 108.0 mmol/L 98-107 CARBON DIOXIDE (test code=CO2) 36.0 mmol/L 21-32 ANION GAP (test code=GAP) 7.8 10-20 GLUCOSE (test code=GLU) 135 mg/dL 74-106 BLOOD UREA NITROGEN (test code=BUN) 9 mg/dL 7-18 GLOMERULAR FILTRATION RATE (test code=GFR) > 60 mL/min >=60 Estimated GFR by using Modified MDRD formula.Chronic kidney disease is defined as either kidney damageor GFR <60 mL/min/1.73 m2 for >3 months. CREATININE (test code=CREAT) 1.00 mg/dL 0.7-1.3 BUN/CREATININE RATIO (test code=BUN/CREA) 9.4 10-20 CALCIUM (test code=CA) 8.8 mg/dL 8.5-10.1 [id number] 05:33:00* Test Item Value Reference Range Comments PHOSPHORUS (test code=PHOS) 1.9 mg/dL 2.5-4.9 [id number] 05:33:00* Test Item Value Reference Range Comments MAGNESIUM (test code=MAG) 1.9 mg/dL 1.8-2.4 CALCIUM [id number] 05:33:00* Test Item Value Reference Range Comments CALCIUM IONIZED (test code=SHAKILA) 1.16 mmol/L 1.12-1.32 BASIC METABOLIC [id number] 05:32:00* Test Item Value Reference Range Comments SODIUM (test code=NA) 148 mmol/L 136-145 POTASSIUM (test code=K) 3.8 mmol/L 3.5-5.1 CHLORIDE (test code=CL) 108.0 mmol/L 98-107 CARBON DIOXIDE (test code=CO2) 36.0 mmol/L 21-32 ANION GAP (test code=GAP) 7.8 10-20 GLUCOSE (test code=GLU) 135 mg/dL 74-106 BLOOD UREA NITROGEN (test code=BUN) 9 mg/dL 7-18 GLOMERULAR FILTRATION RATE (test code=GFR) > 60 mL/min >=60 Estimated GFR by using Modified MDRD formula.Chronic kidney disease is defined as either kidney damageor GFR <60 mL/min/1.73 m2 for >3 months. CREATININE (test code=CREAT) 1.00 mg/dL 0.7-1.3 BUN/CREATININE RATIO (test code=BUN/CREA) 9.4 10-20 CALCIUM (test code=CA) 8.8 mg/dL 8.5-10.1 [id number] 05:32:00* Test Item Value Reference Range Comments PHOSPHORUS (test code=PHOS) 1.9 mg/dL 2.5-4.9 [id number] 05:32:00* Test Item Value Reference Range Comments MAGNESIUM (test code=MAG) 1.9 mg/dL 1.8-2.4 CALCIUM [id number] 05:32:00* Test Item Value Reference Range Comments CALCIUM IONIZED (test code=SHAKILA) mmol/L 1.12-1.32 BASIC METABOLIC [id number] 05:27:00* Test Item Value Reference Range Comments SODIUM (test code=NA) 148 mmol/L 136-145 POTASSIUM (test code=K) 3.8 mmol/L 3.5-5.1 CHLORIDE (test code=CL) 108.0 mmol/L 98-107 CARBON DIOXIDE (test code=CO2) mmol/L 21-32 ANION GAP (test code=GAP) 10-20 GLUCOSE (test code=GLU) mg/dL 74-106 BLOOD UREA NITROGEN (test code=BUN) mg/dL 7-18 GLOMERULAR FILTRATION RATE (test code=GFR) mL/min >=60 CREATININE (test code=CREAT) mg/dL 0.7-1.3 BUN/CREATININE RATIO (test code=BUN/CREA) 10-20 CALCIUM (test code=CA) mg/dL 8.5-10.1 [id number] 05:27:00* Test Item Value Reference Range Comments PHOSPHORUS (test code=PHOS) mg/dL 2.5-4.9 [id number] 05:27:00* Test Item Value Reference Range Comments MAGNESIUM (test code=MAG) mg/dL 1.8-2.4 CALCIUM [id number] 05:27:00* Test Item Value Reference Range Comments CALCIUM IONIZED (test code=SHAKILA) mmol/L 1.12-1.32 BASIC METABOLIC [id number] 07:41:00* Test Item Value Reference Range Comments SODIUM (test code=NA) 147 mmol/L 136-145 POTASSIUM (test code=K) 3.7 mmol/L 3.5-5.1 CHLORIDE (test code=CL) 116.0 mmol/L 98-107 CARBON DIOXIDE (test code=CO2) 24.0 mmol/L 21-32 ANION GAP (test code=GAP) 10.7 10-20 GLUCOSE (test code=GLU) 163 mg/dL 74-106 BLOOD UREA NITROGEN (test code=BUN) 16 mg/dL 7-18 GLOMERULAR FILTRATION RATE (test code=GFR) 56 mL/min >=60 Estimated GFR by using Modified MDRD formula.Chronic kidney disease is defined as either kidney damageor GFR <60 mL/min/1.73 m2 for >3 months. CREATININE (test code=CREAT) 1.30 mg/dL 0.7-1.3 BUN/CREATININE RATIO (test code=BUN/CREA) 12.3 10-20 CALCIUM (test code=CA) 8.8 mg/dL 8.5-10.1 [id number] 07:41:00* Test Item Value Reference Range Comments PHOSPHORUS (test code=PHOS) 1.9 mg/dL 2.5-4.9 [id number] 07:41:00* Test Item Value Reference Range Comments MAGNESIUM (test code=MAG) 2.1 mg/dL 1.8-2.4 CALCIUM [id number] 07:41:00* Test Item Value Reference Range Comments CALCIUM IONIZED (test code=SHAKILA) 1.34 mmol/L 1.12-1.32 BASIC METABOLIC [id number] 07:39:00* Test Item Value Reference Range Comments SODIUM (test code=NA) 147 mmol/L 136-145 POTASSIUM (test code=K) 3.7 mmol/L 3.5-5.1 CHLORIDE (test code=CL) 116.0 mmol/L 98-107 CARBON DIOXIDE (test code=CO2) mmol/L 21-32 ANION GAP (test code=GAP) 10-20 GLUCOSE (test code=GLU) mg/dL 74-106 BLOOD UREA NITROGEN (test code=BUN) mg/dL 7-18 GLOMERULAR FILTRATION RATE (test code=GFR) mL/min >=60 CREATININE (test code=CREAT) mg/dL 0.7-1.3 BUN/CREATININE RATIO (test code=BUN/CREA) 10-20 CALCIUM (test code=CA) mg/dL 8.5-10.1 [id number] 07:39:00* Test Item Value Reference Range Comments PHOSPHORUS (test code=PHOS) mg/dL 2.5-4.9 [id number] 07:39:00* Test Item Value Reference Range Comments MAGNESIUM (test code=MAG) mg/dL 1.8-2.4 CALCIUM [id number] 07:39:00* Test Item Value Reference Range Comments CALCIUM IONIZED (test code=SHAKILA) 1.34 mmol/L 1.12-1.32 - XR CHEST 1 [id number] 07:22:00 FAX: Lisandra Khan MD [phone] [place]: St: [facility] FAX: Asuncion Morales NP [phone] Name: AMNA BERKOWITZ [facility] : 1955 Age/S: 63/M [address] [facility] Unit #: [id number] Loc: V.S20 [place] [address] Phys: Asuncion Morales NP Acct: [id number] Dis Date: Status: ADM IN PHONE #: [phone] Exam Date: 05/30/2019 0544 FAX #: [phone] Reason: sob EXAMS: CPT CODE: [id number] XR CHEST 1 V 50764 CLINICAL HISTORY: Shortness of breath TECHNIQUE: AP chest x-ray COMPARISON: Previous day. IMPRESSION: No significant interval change. Low lung volumes with bibasilar atelectasis. No airspace consolidation or pleural effusion. Normal heart size. Atherosclerotic vascular calcification of the thoracic aorta. ET and NG tubes. at 0722 Reported and signed by: Marsha Stone D.O. CC: Lisandra Norris MD; Asuncion Morales NP Technologist: ЮЛИЯ Tesfaye Trnscrd Date/Time/By: 05/30/2019 (07) : By: [email or web address] Orig Print D/T: S: 05/30/2019 (8972) PAGE 1 Signed Report BASIC METABOLIC [id number] 07:12:00* Test Item Value Reference Range Comments SODIUM (test code=NA) mmol/L 136-145 POTASSIUM (test code=K) mmol/L 3.5-5.1 CHLORIDE (test code=CL) mmol/L 98-107 CARBON DIOXIDE (test code=CO2) mmol/L 21-32 ANION GAP (test code=GAP) 10-20 GLUCOSE (test code=GLU) mg/dL 74-106 BLOOD UREA NITROGEN (test code=BUN) mg/dL 7-18 GLOMERULAR FILTRATION RATE (test code=GFR) mL/min >=60 CREATININE (test code=CREAT) mg/dL 0.7-1.3 BUN/CREATININE RATIO (test code=BUN/CREA) 10-20 CALCIUM (test code=CA) mg/dL 8.5-10.1 [id number] 07:12:00* Test Item Value Reference Range Comments PHOSPHORUS (test code=PHOS) mg/dL 2.5-4.9 [id number] 07:12:00* Test Item Value Reference Range Comments MAGNESIUM (test code=MAG) mg/dL 1.8-2.4 CALCIUM [id number] 07:12:00* Test Item Value Reference Range Comments CALCIUM IONIZED (test code=SHAKILA) 1.34 mmol/L 1.12-1.32 ARTERIAL BLOOD [id number] 06:03:00* Test Item Value Reference Range Comments ARTERIAL BLOOD GAS PH (test code=PHA) 7.43 7.35-7.45 ARTERIAL BLOOD GAS PCO2 (test code=PCO2A) 35.1 mm Hg 35-45 ARTERIAL BLOOD GAS PO2 (test code=PO2A) 41.1 mmHg 80-100 Results called to and read back by haile hoffman 06:03 - 05/30/2019; by [email or web address] BICARBONATE TOTAL HCO3 (test code=HCO3) 22.6 mmol/L 23.0-27.0 BASE EXCESS (test code=JAYLON) -1.3 mmol/L -3.0-5.0 ABG O2 SATURATION (test code=SATA) 80.8 % 90.0-98.0 ABG TYPE (test code=TYPEA) Arterial FIO2 (test code=FIO2A) 40.0 ABG VENT MODE (test code=MODEA) Assist Control ABG VENT RESP RATE (test code=RRA) 14.0 per min ABG TIDAL VOLUME (test code=TVA) 500.0 mL ABG PEEP (test code=PEEPA) 5.0 cmH2O ABG SITE (test code=SITEA) Rt RADIAL ARTERY MODIFIED ALLENS (test code=MODALL) Yes CHECK PERFORMED SODIUM (test code=NA/ABG) 141.9 mEq/L 135-148 POTASSIUM (test code=K/ABG) 3.4 mEq/L 3.5-4.5 CHLORIDE (test code=CL/ABG) 108 mEq/L 98-106 GLUCOSE (test code=GLU/ABG) 171 mg/dL 74-99 HEMATOCRIT (test code=HCT/ABG) 37 % 42-52 IONIZED CALCIUM (test code=CAIABG) 1.24 mmol/L 1.1-1.37 TOTAL HGB (test code=THB) 12.7 gram/dL 13.0-17.5 HGB O2 SAT (test code=HBOSAT) 80.5 % 94.00-98.00 CARBOXYHEMOGLOBIN (test code=HOHGBT) 0.1 %totalHg 0.5-1.5 Results called to and read back by haile hoffman 06:03 - 05/30/2019; by [email or web address] METHEMOGLOBIN (test code=METHGB) 0.3 % 0.0-1.50 O2 CONTENT (test code=O2CT) 14.3 % vol 18.0-22.0 CBC W/AUTO [id number] 05:56:00* Test Item Value Reference Range Comments WHITE BLOOD CELL (test code=WBC) 15.7 K/mm3 4.5-12.5 RED BLOOD CELL (test code=RBC) 4.11 mill/mm3 4.0-5.8 HEMOGLOBIN (test code=HGB) 11.8 gram/dL 13.0-17.5 HEMATOCRIT (test code=HCT) 37.1 % 42.0-52.0 MEAN CELL VOLUME (test code=MCV) 90.3 fL 80-98 MEAN CELL HGB (test code=MCH) 28.7 picogram 27.0-33.0 MEAN CELL HGB CONCETRATION (test code=MCHC) 31.8 gram/dL 33.0-36.0 RED CELL DISTRIBUTION WIDTH (test code=RDW) 13.9 % 11.6-16.2 RED CELL DISTRIBUTION WIDTH SD (test code=RDW-SD) 45.5 fL 37.0-51.0 PLATELET COUNT (test code=PLT) 223 K/mm3 150-450 MEAN PLATELET VOLUME (test code=MPV) 9.5 fL 6.7-11.0 NEUTROPHIL % (test code=NT%) 90.7 % 39.0-69.0 IMMATURE GRANULOCYTE % (test code=IG%) 0.8 % 0.0-5.0 LYMPHOCYTE % (test code=LY%) 3.7 % 25.0-55.0 MONOCYTE % (test code=MO%) 4.5 % 0.0-10.0 EOSINOPHIL % (test code=EO%) 0.1 % 0.0-5.0 BASOPHIL % (test code=BA%) 0.2 % 0.0-1.0 NUCLEATED RBC % (test code=NRBC%) 0.0 % 0-0 NEUTROPHIL # (test code=NT#) 14.20 K/mm3 1.8-7.7 IMMATURE GRANULOCYTE # (test code=IG#) 0.12 x10 3/uL 0-0.03 LYMPHOCYTE # (test code=LY#) 0.58 K/mm3 1.0-5.0 MONOCYTE # (test code=MO#) 0.71 K/mm3 0-0.8 EOSINOPHIL # (test code=EO#) 0.02 K/mm3 0.0-0.5 BASOPHIL # (test code=BA#) 0.03 K/mm3 0.0-0.2 NUCLEATED RBC # (test code=NRBC#) 0.00 K/mm3 0.0-0.1 MANUAL DIFF REQUIRED (test code=MDIFF) NO - CT HEAD/BRAIN W/O [id number] 20:26:00 Name: AMNA BERKOWITZ [facility] : 1955 Age/S: 63 / M [address] [facility] Unit #: [id number] Loc: [place] [address] Phys: Asuncion Morales [employer] Acct: [id number] Dis Date: Status: ADM IN PHONE #: [phone] Exam Date: 05/29/20192022 FAX #: [phone] Reason: AMS EXAMS: CPT CODE: [id number] CT HEAD/BRAIN W/O CONT [id number] REASON FOR EXAM: AMS EXAM ORDER DATE: 05/29/2019 7:04 PM Ordering Kayleigh: Asuncion Morales NP PROCEDURE: - CT HEAD/BRAIN W/O CONT COMPARISON: 05/26/2019 FINDINGS: CT images of the brain were obtained without IV contrast. Dose modulation, iterative reconstruction, and/or weight based adjustment of the MA/KV was utilized to reduce the radiation dose to as low as reasonably achievable. The brain parenchyma is within normal limits. The salas-white matter delineation is unremarkable. The ventricles, cisterns, and sulci are unremarkable. There is no evidence of hemorrhage, mass, mass effect. There is no evidence of acute or old infarct. The calvarium is intact. IMPRESSION: Unremarkable brain. at 2025 Reported and signed by: Xavi Nugent M.D. CC: Lisandra Norris MD; Asuncion Morales NP Techn ologist:MARQUITA WARREN, RT(R) CT CTDI: DLP: Trnscb Date/Darin e: 05/29/2019 (2025) t.SDR.VTL Orig Print D/T: S: 019 (0709) PAGE 1 Signed Report - US EXTREM NON VASC [id number] 17:55:00 Name: AMNA BERKOWITZ [facility] : 1955 Age/S: 63 / M [address] [facility] Unit #: [id number] Loc: [place] [address] Phys: Lisandra Norris MD Acct: [id number] Dis Date: Status: ADM IN PHONE #: [phone] Exam Date: 05/29/2019 1706 FAX #: [phone] Reason: L chest wall swelling EXAMS: CPT CODE: [id number] US EXTREM NON VASC COMP [id number] REASON FOR EXAM: L chest wall swelling EXAM ORDER DATE: 05/29/2019 3:47 PM Attending Kayleigh: Lisandra Norris MD PROCEDURE: - US EXTREM NON VASC COMP FINDINGS: Limited focal ultrasound performed in the left chest wall area assessment for possible mass. There is no evidence of focal mass, fluid collection or abscess IMPRESSION: No evidence of fluid collection or abscess at 1755 Reported and signed by: Xavi Nugent M.D. CC: Lisandra Norris MD Technologist: Rena Camilo RT(S), [facility] Trnscb Date/Time: 05/29/2019 (1755) DawnaVTL Orig Print D/T: S: 05/29/2019 (3649) Probe: PAGE 1 Signed Report URINALYSIS [id number] 17:04:00* Test Item Value Reference Range Comments UA COLOR (test code=COLU) Light-Yellow YELLOW UA APPEARANCE (test code=APPU) Cloudy CLEAR UA GLUCOSE DIPSTICK (test code=DGLUU) NEGATIVE mg/dL NEGATIVE UA BILIRUBIN DIPSTICK (test code=BILU) NEGATIVE mg/dL NEGATIVE UA KETONE DIPSTICK (test code=KETU) 40 (2+) mg/dL NEGATIVE UA SPECIFIC GRAVITY (test code=SGU) 1.015 1.001-1.035 UA BLOOD DIPSTICK (test code=RUBEN) 0.2 mg/dL (2+) mg/dL NEGATIVE UA PH DIPSTICK (test code=OFELIA) 6.0 5.0-8.0 UA PROTEIN DIPSTICK (test code=PROU) 10 (Trace) mg/dL NEGATIVE UA UROBILINIOGEN DIPSTICK (test code=URO) Normal mg/dL NEGATIVE UA NITRITE DIPSTICK (test code=DIPTI) POSITIVE NEGATIVE UA LEUKOCYTE ESTERASE W REFLEX (test code=LEUUR) 500 Maxi/uL (3+) Maxi/uL NEGATIVE UA WBC (test code=WBCU) 21-50 per HPF 0-5 UA RBC (test code=RBCU) 21-50 #/HPF 0-5 UA EPITHELIAL CELLS (test code=EPIU) FEW per HPF FEW UA BACTERIA (test code=BACU) FEW #/HPF NONE UA HYALINE CAST (test code=HYALU) 11-20 #/LPF 0-5 UA MUCUS (test code=MUCU) FEW #/LPF FEW UA AMORPHOUS SEDIMENT (test code=AMORU) FEW #/LPF URINALYSIS [id number] 17:01:00* Test Item Value Reference Range Comments UA COLOR (test code=COLU) Light-Yellow YELLOW UA APPEARANCE (test code=APPU) Cloudy CLEAR UA GLUCOSE DIPSTICK (test code=DGLUU) NEGATIVE mg/dL NEGATIVE UA BILIRUBIN DIPSTICK (test code=BILU) NEGATIVE mg/dL NEGATIVE UA KETONE DIPSTICK (test code=KETU) 40 (2+) mg/dL NEGATIVE UA SPECIFIC GRAVITY (test code=SGU) 1.015 1.001-1.035 UA BLOOD DIPSTICK (test code=RUBEN) 0.2 mg/dL (2+) mg/dL NEGATIVE UA PH DIPSTICK (test code=OFELIA) 6.0 5.0-8.0 UA PROTEIN DIPSTICK (test code=PROU) 10 (Trace) mg/dL NEGATIVE UA UROBILINIOGEN DIPSTICK (test code=URO) Normal mg/dL NEGATIVE UA NITRITE DIPSTICK (test code=DIPTI) POSITIVE NEGATIVE UA LEUKOCYTE ESTERASE W REFLEX (test code=LEUUR) 500 Maxi/uL (3+) Maxi/uL NEGATIVE UA WBC (test code=WBCU) per HPF 0-5 UA RBC (test code=RBCU) per HPF 0-5 UA EPITHELIAL CELLS (test code=EPIU) per HPF Few UA BACTERIA (test code=BACU) per HPF NONE URINALYSIS [id number] 17:01:00* Test Item Value Reference Range Comments UA COLOR (test code=COLU) Light-Yellow YELLOW UA APPEARANCE (test code=APPU) Cloudy CLEAR UA GLUCOSE DIPSTICK (test code=DGLUU) NEGATIVE mg/dL NEGATIVE UA BILIRUBIN DIPSTICK (test code=BILU) NEGATIVE mg/dL NEGATIVE UA KETONE DIPSTICK (test code=KETU) 40 (2+) mg/dL NEGATIVE UA SPECIFIC GRAVITY (test code=SGU) 1.015 1.001-1.035 UA BLOOD DIPSTICK (test code=RUBEN) 0.2 mg/dL (2+) mg/dL NEGATIVE UA PH DIPSTICK (test code=OFELIA) 6.0 5.0-8.0 UA PROTEIN DIPSTICK (test code=PROU) 10 (Trace) mg/dL NEGATIVE UA UROBILINIOGEN DIPSTICK (test code=URO) Normal mg/dL NEGATIVE UA NITRITE DIPSTICK (test code=DIPTI) POSITIVE NEGATIVE UA LEUKOCYTE ESTERASE W REFLEX (test code=LEUUR) 500 Maxi/uL (3+) Maxi/uL NEGATIVE UA WBC (test code=WBCU) per HPF 0-5 UA RBC (test code=RBCU) per HPF 0-5 UA EPITHELIAL CELLS (test code=EPIU) per HPF Few UA BACTERIA (test code=BACU) per HPF NONE ARTERIAL BLOOD [id number] 16:11:00* Test Item Value Reference Range Comments ARTERIAL BLOOD GAS PH (test code=PHA) 7.33 7.35-7.45 ARTERIAL BLOOD GAS PCO2 (test code=PCO2A) 29.1 mm Hg 35-45 ARTERIAL BLOOD GAS PO2 (test code=PO2A) 86.8 mmHg 80-100 BICARBONATE TOTAL HCO3 (test code=HCO3) 15.0 mmol/L 23.0-27.0 BASE EXCESS (test code=JAYLON) -9.5 mmol/L -3.0-5.0 Results called to and read back by je 16:09 - 05/29/2019; by lloyd diez ABG O2 SATURATION (test code=SATA) 96.7 % 90.0-98.0 ABG TYPE (test code=TYPEA) Arterial FIO2 (test code=FIO2A) 40.0 ABG VENT MODE (test code=MODEA) Assist Control ABG VENT RESP RATE (test code=RRA) 14.0 per min ABG TIDAL VOLUME (test code=TVA) 500.0 mL ABG PEEP (test code=PEEPA) 5.0 cmH2O ABG SITE (test code=SITEA) Lt RADIAL ARTERY SODIUM (test code=NA/ABG) 140.3 mEq/L 135-148 POTASSIUM (test code=K/ABG) 3.9 mEq/L 3.5-4.5 CHLORIDE (test code=CL/ABG) 111 mEq/L 98-106 GLUCOSE (test code=GLU/ABG) 150 mg/dL 74-99 HEMATOCRIT (test code=HCT/ABG) 39 % 42-52 IONIZED CALCIUM (test code=CAIABG) 1.29 mmol/L 1.1-1.37 TOTAL HGB (test code=THB) 13.3 gram/dL 13.0-17.5 HGB O2 SAT (test code=HBOSAT) 95.9 % 94.00-98.00 CARBOXYHEMOGLOBIN (test code=HOHGBT) 0.5 %totalHg 0.5-1.5 METHEMOGLOBIN (test code=METHGB) 0.3 % 0.0-1.50 O2 CONTENT (test code=O2CT) 18.0 % vol 18.0-22.0 - CT ABDOMEN W/O [id number] 15:50:00 Name: AMNA BERKOWITZ [facility] : 1955 Age/S: 63 / M [address] [facility] Unit #: [id number] Loc: [place] [address] Phys: MYA PEREZ MD Acct: [id number] Dis Date: Status: ADM IN PHONE #: [phone] Exam Date: 05/29/2019 1537 FAX #: [phone] Reason: LABORED BREATHING ABN CHEST XRAY EXAMS: CPT CODE: [id number] CT ABDOMEN W/O CONT [id number] REASON FOR EXAM: LABORED BREATHING ABN CHEST XRAY EXAM ORDER DATE: 05/29/2019 2:34 PM Ordering M.Albert: MYA PEREZ MD PROCEDURE: - CT ABDOMEN W/O CONT COMPARISON: FINDINGS: CT images of the abdomen were obtained without IV and without oral contrast at 5mm. Dose modulation, iterative reconstruction, and/or weight based adjustment of the MA/KV was utilized to reduce the radiation dose to as low as reasonably achievable. The liver, spleen, pancreas are grossly within normal limits. The gallbladder is unremarkable by CT. The kidneys are within normal limits. Minimal gaseous distention of the stomach and transverse colon. No evidence of free air or free fluid. 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 at 1550 Reported and signed by: Xavi Nugent M.D. CC: Lisandra Norris MD; MYA PEREZ MD Technologist:Jeny Jackson RT(R),CT; CTDI: DLP: Trnscb Date/Time: 05/29/2019 (0009) Mj Orig Print D/T: S: 05/29/2019 (2485) PAGE 1 Signed Report - CT CHEST W/O [id number] 15:46:00 Name: AMNA BERKOWITZ [facility] : 1955 Age/S: 63 / M [address] [place] Unit #: [id number] Loc: [place] [address] Phys: HARMONY PEREZ MMAD, MD Acct: [id number] Di s Date: Status: ADM IN PHONE #: [phone] Exam Date: 05/29/2019 1537 FAX #: [phone] Reason: LABORED BREATHING ABN CHEST XRAY EXAMS: CPT CODE: [id number] CT CHEST W/O CONTRAST 30546 REASON FOR EXAM: LABORED BREATHING ABN CHEST XRAY EXAM ORDER DATE: 05/29/2019 2:34 PM Ordering M.Albert: MYA PEREZ MD PROCEDURE: - CT CHEST W/O CONTRAST FINDINGS: CT images of the chest were obtained without IV contrast. Reconstructed sagittal and coronal images of the chest were p rovided for interpretation. Dose modulation, iterative reconstruction, an d/or weight based adjustment of the MA/KV was utilized to reduce the radiation dose to as low as reasonably achievable. The heart size is within normal limits. No evidence of pericardial effusion. The thoracic aorta is aorta is unremarkable. No evidence of mediastinal or h ilar adenopathy. IMPRESSION: Atelectasis of the bases mo re pronounced on the right with small right pleural effusion at 1546 Reported and signed by: Xavi Nugent M.D. CC: Lisandra Norris MD; MYA PEREZ MD Technologist:Jeny Jackson RT(R),CT; CTDI: DLP: Trnscb Date/Time: 05/29/2019 (1546) tTHALIA Orig Print D/T: S: 05/29/2019 (5260) PAGE 1 Signed Report - XR CHEST 1 [id number] 15:38:00 FAX: Lisandra Khan MD [phone] [place]: B St: ADM FAX: Asuncion Morales NP [phone] Name: AMNA BERKOWITZ [facility] : 1955 Age/S: 63/M [address] [facility] Unit #: [id number] Loc: V.S20 [place] [address] Phys: Asuncion Morales NP Acct: [id number] Dis Date: Status: ADM IN PHONE #: [phone] Exam Date: 05/29/2019 1446 FAX #: [phone] Reason: S/P ADVANCED ET TUBE PER ICU-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 There is no evidence of effusion. The heart size is minimally enlarged. Pulmonary vasculatures are minimally congested. Stable appearance of the OG tube. IMPRESSION: The ET tube has been advanced further and is now 2 cm above the daniel at 1532 Reported and signed by: Xavi Nugent M.D. CC: Lisandra Norris MD; Asuncion Morales NP Technologist: Helen Del Rio(R); Viri Webber RT(R) Trntnrd Date/Time/By: 05/29/2019 (1539) : By: Mj Orig Print D/T: S: 05/29/2019 (8995) PAGE 1 Signed Report - XR CHEST 1 [id number] 14:50:00 FAX: Lisandra Khan MD [phone] [place]: St: ADM FAX: Asuncion Morales NP [phone] Name: AMNA BERKOWITZ [facility] : 1955 Age/S: 63/M [address] [facility] Unit #: [id number] Loc: V.S20 [place] [address] Phys: Asuncion Morales NP Acct: [id number] Dis Date: Status: ADM IN PHONE #: [phone] Exam Date: 05/29/2019 1425 FAX #: [phone] Reason: s/p intubation EXAMS: CPT CODE: [id number] XR CHEST 1 V 49798 REASON FOR EXAM: s/p intubation EXAM ORDER DATE: 05/29/2019 2:18 PM Ordering Kayleigh: Asuncion Morales NP PROCEDURE: - XR CHEST 1 V COMPARISON: 05/29/2019 at 11:35 AM FINDINGS: Portable AP frontal view of the chest obtained at 2:41 PM shows patchy airspace opacity of the bases. There is no evidence of effusion. The heart size is within normal limits. Pulmonary vasculatures are minimally congested. IMPRESSION: Status post intubation wi th the tip of the ET tube 3 cm above the daniel. The OG tube tip is in t he stomach at 14 50 Reported and signed by: Xavi Nugent M.D. CC: Lisandra Norris MD; Asuncion Morales NP Technologist: Mateus Del Rio(R); Viri SCHOFIELD(R) Trnscrd Date/Time/By: 10/2018 (9389) : By: VanessaL Orig Print D/T: S: 05/29/2019 (2997) PAGE 1 Signed Report LACTIC [id number] 13:57:00* Test Item Value Reference Range Comments LACTIC ACID (test code=LACT) 1.2 mmol/L 0.4-1.9 ARTERIAL BLOOD [id number] 12:02:00* Test Item Value Reference Range Comments ARTERIAL BLOOD GAS PH (test code=PHA) 7.23 7.35-7.45 ARTERIAL BLOOD GAS PCO2 (test code=PCO2A) 35.2 mm Hg 35-45 ARTERIAL BLOOD GAS PO2 (test code=PO2A) 54.3 mmHg 80-100 BICARBONATE TOTAL HCO3 (test code=HCO3) 14.3 mmol/L 23.0-27.0 BASE EXCESS (test code=JAYLON) -12.3 mmol/L -3.0-5.0 Results called to and read back by je : - 05/29/2019; by vik diesel locomotive engineer ABG O2 SATURATION (test code=SATA) 88.3 % 90.0-98.0 ABG TYPE (test code=TYPEA) Arterial FIO2 (test code=FIO2A) 36.0 ABG SITE (test code=SITEA) Rt RADIAL ARTERY SODIUM (test code=NA/ABG) 140.9 mEq/L 135-148 POTASSIUM (test code=K/ABG) 4.0 mEq/L 3.5-4.5 CHLORIDE (test code=CL/ABG) 111 mEq/L 98-106 GLUCOSE (test code=GLU/ABG) 143 mg/dL 74-99 HEMATOCRIT (test code=HCT/ABG) 41 % 42-52 IONIZED CALCIUM (test code=CAIABG) 1.33 mmol/L 1.1-1.37 TOTAL HGB (test code=THB) 14.0 gram/dL 13.0-17.5 HGB O2 SAT (test code=HBOSAT) 87.6 % 94.00-98.00 CARBOXYHEMOGLOBIN (test code=HOHGBT) 0.4 %totalHg 0.5-1.5 Results called to and read back by je - 05/29/2019; by vik diesel locomotive engineer METHEMOGLOBIN (test code=METHGB) 0.4 % 0.0-1.50 O2 CONTENT (test code=O2CT) 17.2 % vol 18.0-22.0 - XR ABDOMEN AP 1 [id number] 12:01:00 FAX: Lisandra Khan MD [phone] [place]: St: [facility] FAX: Asuncion Morales NP [phone] Name: AMNA BERKOWITZ [facility] : 1955 Age/S: 63/M [address] [facility] Unit #: [id number] Loc: [address] [address] Phys: Asuncion Morales NP Acct: [id number] Dis Date: Status: ADM IN PHONE #: [phone] Exam Date: 05/29/2019 1150 FAX #: [phone] Reason: f/u ileus EXAMS: CPT CODE: [id number] XR ABDOMEN AP 1 V 69693 HISTORY: Follow-up ileus. COMPARISON: None available. No bowel obstruction. Bowel gas pattern is within normal limits. Large amount stool within the rectosigmoid colon. No pathologic c alcification the upper abdomen is not included. IMPRESSION: No bowel obstruction. Bowel gas pattern is within normal limits. T he upper abdomen is not included slightly limiting evaluation. at 1201 Reported and signed by: Taras Lowe M.D. CC: Lisandra Norris MD; Asuncion Morales NP Technologist: GIOVANA MELÉNDEZ, RT(R); Viri Webber RT(R) Trntnrd Date/Time/By: 05/29/20 19 (1201) : By: [email or web address] Orig Print D/T: S: 05/29/2019 (3977) PAGE 1 Signed Report - XR CHEST 1 [id number] 11:59:00 FAX: Lisandra Khan MD [phone] [place]: St: ADM FAX: Asuncion Morales NP [phone] Name: AMNA BERKOWITZ [facility] : 1955 Age/S: 63/M [address] [facility] Unit #: [id number] Loc: [facility] [place], [place] [address] Phys: Asuncion Morales NP Acct: [id number] Dis Date: Status: ADM IN PHONE #: [phone] Exam Date: 05/29/2019 1150 FAX #: [phone] Reason: sob EXAMS: CPT CODE: [id number] XR CHEST 1 V 20131 HISTORY: Shortness of breath. COMPARISON: May 27, 2019. Suboptimal inspiration with cardiac and the bronchovascular markings and bibasal subsegmental atelectasis. No infiltrates or congesti on. Elevated left hemidiaphragm with distended well. Cardiomegaly. IMPRESSION: Bibasal subsegmental atelectasis without infiltrates or congestion. at 1157 Reported and signed by: Taras guerrero M.D. CC: Lisandra Norris MD; Asuncion Morales NP Technologist: WILIAN MELÉNDEZ, RT(R); Viri Webber RT(R) Trnscrd Date/Time/By: 05/29/2019 (3990) : By: [email or web address] Orig Print D/T: S: 05/29/2019 (7940) PAGE 1 Signed Report BASIC METABOLIC [id number] 07:30:00* Test Item Value Reference Range Comments SODIUM (test code=NA) 146 mmol/L 136-145 POTASSIUM (test code=K) 4.0 mmol/L 3.5-5.1 CHLORIDE (test code=CL) 116.0 mmol/L 98-107 CARBON DIOXIDE (test code=CO2) 17.0 mmol/L 21-32 ANION GAP (test code=GAP) 17.0 10-20 GLUCOSE (test code=GLU) 107 mg/dL 74-106 BLOOD UREA NITROGEN (test code=BUN) 13 mg/dL 7-18 GLOMERULAR FILTRATION RATE (test code=GFR) 56 mL/min >=60 Estimated GFR by using Modified MDRD formula.Chronic kidney disease is defined as either kidney damageor GFR <60 mL/min/1.73 m2 for >3 months. CREATININE (test code=CREAT) 1.30 mg/dL 0.7-1.3 BUN/CREATININE RATIO (test code=BUN/CREA) 9.8 10-20 CALCIUM (test code=CA) 9.1 mg/dL 8.5-10.1 [id number] 07:30:00* Test Item Value Reference Range Comments PHOSPHORUS (test code=PHOS) 4.2 mg/dL 2.5-4.9 [id number] 07:30:00* Test Item Value Reference Range Comments MAGNESIUM (test code=MAG) 2.0 mg/dL 1.8-2.4 CALCIUM [id number] 07:30:00* Test Item Value Reference Range Comments CALCIUM IONIZED (test code=SHAKILA) 1.40 mmol/L 1.12-1.32 BASIC METABOLIC [id number] 07:24:00* Test Item Value Reference Range Comments SODIUM (test code=NA) 146 mmol/L 136-145 POTASSIUM (test code=K) 4.0 mmol/L 3.5-5.1 CHLORIDE (test code=CL) 116.0 mmol/L 98-107 CARBON DIOXIDE (test code=CO2) mmol/L 21-32 ANION GAP (test code=GAP) 10-20 GLUCOSE (test code=GLU) mg/dL 74-106 BLOOD UREA NITROGEN (test code=BUN) mg/dL 7-18 GLOMERULAR FILTRATION RATE (test code=GFR) mL/min >=60 CREATININE (test code=CREAT) mg/dL 0.7-1.3 BUN/CREATININE RATIO (test code=BUN/CREA) 10-20 CALCIUM (test code=CA) mg/dL 8.5-10.1 [id number] 07:24:00* Test Item Value Reference Range Comments PHOSPHORUS (test code=PHOS) mg/dL 2.5-4.9 [id number] 07:24:00* Test Item Value Reference Range Comments MAGNESIUM (test code=MAG) mg/dL 1.8-2.4 CALCIUM [id number] 07:24:00* Test Item Value Reference Range Comments CALCIUM IONIZED (test code=SHAKILA) 1.40 mmol/L 1.12-1.32 BASIC METABOLIC [id number] 07:14:00* Test Item Value Reference Range Comments SODIUM (test code=NA) mmol/L 136-145 POTASSIUM (test code=K) mmol/L 3.5-5.1 CHLORIDE (test code=CL) mmol/L 98-107 CARBON DIOXIDE (test code=CO2) mmol/L 21-32 ANION GAP (test code=GAP) 10-20 GLUCOSE (test code=GLU) mg/dL 74-106 BLOOD UREA NITROGEN (test code=BUN) mg/dL 7-18 GLOMERULAR FILTRATION RATE (test code=GFR) mL/min >=60 CREATININE (test code=CREAT) mg/dL 0.7-1.3 BUN/CREATININE RATIO (test code=BUN/CREA) 10-20 CALCIUM (test code=CA) mg/dL 8.5-10.1 [id number] 07:14:00* Test Item Value Reference Range Comments PHOSPHORUS (test code=PHOS) mg/dL 2.5-4.9 [id number] 07:14:00* Test Item Value Reference Range Comments MAGNESIUM (test code=MAG) mg/dL 1.8-2.4 CALCIUM [id number] 07:14:00* Test Item Value Reference Range Comments CALCIUM IONIZED (test code=SHAKILA) 1.40 mmol/L 1.12-1.32 CBC W/AUTO [id number] 07:00:00* Test Item Value Reference Range Comments WHITE BLOOD CELL (test code=WBC) 21.0 K/mm3 4.5-12.5 RED BLOOD CELL (test code=RBC) 4.43 mill/mm3 4.0-5.8 HEMOGLOBIN (test code=HGB) 12.6 gram/dL 13.0-17.5 HEMATOCRIT (test code=HCT) 41.6 % 42.0-52.0 MEAN CELL VOLUME (test code=MCV) 93.9 fL 80-98 MEAN CELL HGB (test code=MCH) 28.4 picogram 27.0-33.0 MEAN CELL HGB CONCETRATION (test code=MCHC) 30.3 gram/dL 33.0-36.0 RED CELL DISTRIBUTION WIDTH (test code=RDW) 13.4 % 11.6-16.2 RED CELL DISTRIBUTION WIDTH SD (test code=RDW-SD) 46.5 fL 37.0-51.0 PLATELET COUNT (test code=PLT) 246 K/mm3 150-450 MEAN PLATELET VOLUME (test code=MPV) 10.4 fL 6.7-11.0 NEUTROPHIL % (test code=NT%) 93.2 % 39.0-69.0 IMMATURE GRANULOCYTE % (test code=IG%) 0.8 % 0.0-5.0 LYMPHOCYTE % (test code=LY%) 2.2 % 25.0-55.0 MONOCYTE % (test code=MO%) 3.7 % 0.0-10.0 EOSINOPHIL % (test code=EO%) 0.0 % 0.0-5.0 BASOPHIL % (test code=BA%) 0.1 % 0.0-1.0 NUCLEATED RBC % (test code=NRBC%) 0.0 % 0-0 NEUTROPHIL # (test code=NT#) 19.56 K/mm3 1.8-7.7 IMMATURE GRANULOCYTE # (test code=IG#) 0.17 x10 3/uL 0-0.03 LYMPHOCYTE # (test code=LY#) 0.46 K/mm3 1.0-5.0 MONOCYTE # (test code=MO#) 0.78 K/mm3 0-0.8 EOSINOPHIL # (test code=EO#) 0.00 K/mm3 0.0-0.5 BASOPHIL # (test code=BA#) 0.03 K/mm3 0.0-0.2 NUCLEATED RBC # (test code=NRBC#) 0.00 K/mm3 0.0-0.1 [id number] 10:07:00* Test Item Value Reference Range Comments LITHIUM (test code=LITH) 1.4 mmol/L 0.5-1.5 SAMPLE WAS HEMOLYZED +3. V.LAB.NE 05/28/19 1007. COMPREHENSIVE METABOLIC [id number] 07:17:00* Test Item Value Reference Range Comments SODIUM (test code=NA) 145 mmol/L 136-145 POTASSIUM (test code=K) 4.3 mmol/L 3.5-5.1 CHLORIDE (test code=CL) 117.0 mmol/L 98-107 CARBON DIOXIDE (test code=CO2) 25.0 mmol/L 21-32 ANION GAP (test code=GAP) 7.3 10-20 GLUCOSE (test code=GLU) 74 mg/dL 74-106 BLOOD UREA NITROGEN (test code=BUN) 16 mg/dL 7-18 GLOMERULAR FILTRATION RATE (test code=GFR) 51 mL/min >=60 Estimated GFR by using Modified MDRD formula.Chronic kidney disease is defined as either kidney damageor GFR <60 mL/min/1.73 m2 for >3 months. CREATININE (test code=CREAT) 1.40 mg/dL 0.7-1.3 BUN/CREATININE RATIO (test code=BUN/CREA) 11.9 10-20 TOTAL PROTEIN (test code=PROT) 5.2 gram/dL 6.4-8.2 ALBUMIN (test code=ALB) 2.8 g/dL 3.4-5.0 GLOBULIN (test code=GLOB) 2.4 gram/dL 2.7-4.2 ALBUMIN/GLOBULIN RATIO (test code=A/G) 1.2 0.75-1.50 CALCIUM (test code=CA) 8.4 mg/dL 8.5-10.1 BILIRUBIN TOTAL (test code=BILT) 0.50 mg/dL 0.0-1.0 SGOT/AST (test code=AST) 15 IUnit/L 15-37 SGPT/ALT (test code=ALT) 19 IUnit/L 12-78 ALKALINE PHOSPHATASE TOTAL (test code=ALKP) 145 IUnit/L 45-117 Note change in reference range due to change in reagent. COMPREHENSIVE METABOLIC [id number] 06:53:00* Test Item Value Reference Range Comments SODIUM (test code=NA) 145 mmol/L 136-145 POTASSIUM (test code=K) 4.3 mmol/L 3.5-5.1 CHLORIDE (test code=CL) 117.0 mmol/L 98-107 CARBON DIOXIDE (test code=CO2) 25.0 mmol/L 21-32 ANION GAP (test code=GAP) 7.3 10-20 GLUCOSE (test code=GLU) mg/dL 74-106 BLOOD UREA NITROGEN (test code=BUN) 16 mg/dL 7-18 GLOMERULAR FILTRATION RATE (test code=GFR) 51 mL/min >=60 Estimated GFR by using Modified MDRD formula.Chronic kidney disease is defined as either kidney damageor GFR <60 mL/min/1.73 m2 for >3 months. CREATININE (test code=CREAT) 1.40 mg/dL 0.7-1.3 BUN/CREATININE RATIO (test code=BUN/CREA) 11.9 10-20 TOTAL PROTEIN (test code=PROT) 5.2 gram/dL 6.4-8.2 ALBUMIN (test code=ALB) 2.8 g/dL 3.4-5.0 GLOBULIN (test code=GLOB) 2.4 gram/dL 2.7-4.2 ALBUMIN/GLOBULIN RATIO (test code=A/G) 1.2 0.75-1.50 CALCIUM (test code=CA) 8.4 mg/dL 8.5-10.1 BILIRUBIN TOTAL (test code=BILT) 0.50 mg/dL 0.0-1.0 SGOT/AST (test code=AST) 15 IUnit/L 15-37 SGPT/ALT (test code=ALT) 19 IUnit/L 12-78 ALKALINE PHOSPHATASE TOTAL (test code=ALKP) 145 IUnit/L 45-117 Note change in reference range due to change in reagent. COMPREHENSIVE METABOLIC [id number] 06:34:00* Test Item Value Reference Range Comments SODIUM (test code=NA) 145 mmol/L 136-145 POTASSIUM (test code=K) 4.3 mmol/L 3.5-5.1 CHLORIDE (test code=CL) 117.0 mmol/L 98-107 CARBON DIOXIDE (test code=CO2) mmol/L 21-32 ANION GAP (test code=GAP) 10-20 GLUCOSE (test code=GLU) mg/dL 74-106 BLOOD UREA NITROGEN (test code=BUN) mg/dL 7-18 GLOMERULAR FILTRATION RATE (test code=GFR) mL/min >=60 CREATININE (test code=CREAT) mg/dL 0.7-1.3 BUN/CREATININE RATIO (test code=BUN/CREA) 10-20 TOTAL PROTEIN (test code=PROT) gram/dL 6.4-8.2 ALBUMIN (test code=ALB) g/dL 3.4-5.0 GLOBULIN (test code=GLOB) gram/dL 2.7-4.2 ALBUMIN/GLOBULIN RATIO (test code=A/G) 0.75-1.50 CALCIUM (test code=CA) mg/dL 8.5-10.1 BILIRUBIN TOTAL (test code=BILT) mg/dL 0.0-1.0 SGOT/AST (test code=AST) IUnit/L 15-37 SGPT/ALT (test code=ALT) IUnit/L 12-78 ALKALINE PHOSPHATASE TOTAL (test code=ALKP) IUnit/L 45-117 CBC W/AUTO [id number] 06:26:00* Test Item Value Reference Range Comments WHITE BLOOD CELL (test code=WBC) 13.4 K/mm3 4.5-12.5 RED BLOOD CELL (test code=RBC) 3.94 mill/mm3 4.0-5.8 HEMOGLOBIN (test code=HGB) 11.4 gram/dL 13.0-17.5 HEMATOCRIT (test code=HCT) 37.4 % 42.0-52.0 MEAN CELL VOLUME (test code=MCV) 94.9 fL 80-98 MEAN CELL HGB (test code=MCH) 28.9 picogram 27.0-33.0 MEAN CELL HGB CONCETRATION (test code=MCHC) 30.5 gram/dL 33.0-36.0 RED CELL DISTRIBUTION WIDTH (test code=RDW) 13.2 % 11.6-16.2 RED CELL DISTRIBUTION WIDTH SD (test code=RDW-SD) 45.9 fL 37.0-51.0 PLATELET COUNT (test code=PLT) 204 K/mm3 150-450 RESULT VERIFIED BY REPEAT ANALYSIS MEAN PLATELET VOLUME (test code=MPV) 9.6 fL 6.7-11.0 NEUTROPHIL % (test code=NT%) 88.7 % 39.0-69.0 IMMATURE GRANULOCYTE % (test code=IG%) 0.7 % 0.0-5.0 LYMPHOCYTE % (test code=LY%) 6.1 % 25.0-55.0 MONOCYTE % (test code=MO%) 4.2 % 0.0-10.0 EOSINOPHIL % (test code=EO%) 0.2 % 0.0-5.0 BASOPHIL % (test code=BA%) 0.1 % 0.0-1.0 NUCLEATED RBC % (test code=NRBC%) 0.0 % 0-0 NEUTROPHIL # (test code=NT#) 11.84 K/mm3 1.8-7.7 IMMATURE GRANULOCYTE # (test code=IG#) 0.09 x10 3/uL 0-0.03 LYMPHOCYTE # (test code=LY#) 0.81 K/mm3 1.0-5.0 MONOCYTE # (test code=MO#) 0.56 K/mm3 0-0.8 EOSINOPHIL # (test code=EO#) 0.03 K/mm3 0.0-0.5 BASOPHIL # (test code=BA#) 0.02 K/mm3 0.0-0.2 NUCLEATED RBC # (test code=NRBC#) 0.00 K/mm3 0.0-0.1 MANUAL DIFF REQUIRED (test code=MDIFF) NO [id number] 04:17:00* Test Item Value Reference Range Comments GLUBED (test code=GLUBED) 67 mg/dL 74-106 Performed by certified wire twisting machine operator at [facility] [id number] 21:00:00* Test Item Value Reference Range Comments GLUBED (test code=GLUBED) 70 mg/dL 74-106 Performed by certified wire twisting machine operator at [facility] BASIC METABOLIC [id number] 17:06:00* Test Item Value Reference Range Comments SODIUM (test code=NA) 142 mmol/L 136-145 POTASSIUM (test code=K) 4.0 mmol/L 3.5-5.1 CHLORIDE (test code=CL) 111.0 mmol/L 98-107 CARBON DIOXIDE (test code=CO2) mmol/L 21-32 ANION GAP (test code=GAP) 10-20 GLUCOSE (test code=GLU) mg/dL 74-106 BLOOD UREA NITROGEN (test code=BUN) mg/dL 7-18 GLOMERULAR FILTRATION RATE (test code=GFR) mL/min >=60 CREATININE (test code=CREAT) mg/dL 0.7-1.3 BUN/CREATININE RATIO (test code=BUN/CREA) 10-20 CALCIUM (test code=CA) mg/dL 8.5-10.1 [id number] 17:06:00* Test Item Value Reference Range Comments LITHIUM (test code=LITH) 1.9 mmol/L 0.5-1.5 BASIC METABOLIC [id number] 17:06:00* Test Item Value Reference Range Comments SODIUM (test code=NA) 142 mmol/L 136-145 POTASSIUM (test code=K) 4.0 mmol/L 3.5-5.1 CHLORIDE (test code=CL) 111.0 mmol/L 98-107 CARBON DIOXIDE (test code=CO2) 22.0 mmol/L 21-32 ANION GAP (test code=GAP) 13.0 10-20 GLUCOSE (test code=GLU) 82 mg/dL 74-106 BLOOD UREA NITROGEN (test code=BUN) 21 mg/dL 7-18 GLOMERULAR FILTRATION RATE (test code=GFR) 51 mL/min >=60 Estimated GFR by using Modified MDRD formula.Chronic kidney disease is defined as either kidney damageor GFR <60 mL/min/1.73 m2 for >3 months. CREATININE (test code=CREAT) 1.40 mg/dL 0.7-1.3 BUN/CREATININE RATIO (test code=BUN/CREA) 15.6 10-20 CALCIUM (test code=CA) 9.4 mg/dL 8.5-10.1 [id number] 17:06:00* Test Item Value Reference Range Comments LITHIUM (test code=LITH) 1.9 mmol/L 0.5-1.5 BASIC METABOLIC [id number] 16:55:00* Test Item Value Reference Range Comments SODIUM (test code=NA) mmol/L 136-145 POTASSIUM (test code=K) mmol/L 3.5-5.1 CHLORIDE (test code=CL) mmol/L 98-107 CARBON DIOXIDE (test code=CO2) mmol/L 21-32 ANION GAP (test code=GAP) 10-20 GLUCOSE (test code=GLU) mg/dL 74-106 BLOOD UREA NITROGEN (test code=BUN) mg/dL 7-18 GLOMERULAR FILTRATION RATE (test code=GFR) mL/min >=60 CREATININE (test code=CREAT) mg/dL 0.7-1.3 BUN/CREATININE RATIO (test code=BUN/CREA) 10-20 CALCIUM (test code=CA) mg/dL 8.5-10.1 [id number] 16:55:00* Test Item Value Reference Range Comments LITHIUM (test code=LITH) 1.9 mmol/L 0.5-1.5 [id number] 16:09:00* Test Item Value Reference Range Comments GLUBED (test code=GLUBED) 84 mg/dL 74-106 Performed by certified wire twisting machine operator at [facility] [id number] 15:04:00* Test Item Value Reference Range Comments GLUBED (test code=GLUBED) 78 mg/dL 74-106 Performed by certified wire twisting machine operator at [facility] [id number] 14:20:00* Test Item Value Reference Range Comments GLUBED (test code=GLUBED) 72 mg/dL 74-106 Performed by certified wire twisting machine operator at [facility] URINALYSIS [id number] 06:43:00* Test Item Value Reference Range Comments UA COLOR (test code=COLU) YELLOW YELLOW UA APPEARANCE (test code=APPU) CLEAR CLEAR UA GLUCOSE DIPSTICK (test code=DGLUU) NEGATIVE mg/dL NEGATIVE UA BILIRUBIN DIPSTICK (test code=BILU) NEGATIVE mg/dL NEGATIVE UA KETONE DIPSTICK (test code=KETU) 10 (1+) mg/dL NEGATIVE UA SPECIFIC GRAVITY (test code=SGU) 1.021 1.001-1.035 UA BLOOD DIPSTICK (test code=RUBEN) Negative mg/dL NEGATIVE UA PH DIPSTICK (test code=OFELIA) 6.5 5.0-8.0 UA PROTEIN DIPSTICK (test code=PROU) 20 (Trace) mg/dL NEGATIVE UA UROBILINIOGEN DIPSTICK (test code=URO) Normal mg/dL NEGATIVE UA NITRITE DIPSTICK (test code=DIPTI) NEGATIVE NEGATIVE UA LEUKOCYTE ESTERASE W REFLEX (test code=LEUUR) NEGATIVE Maxi/uL NEGATIVE UA WBC (test code=WBCU) 0-5 per HPF 0-5 UA RBC (test code=RBCU) 0-2 #/HPF 0-5 UA EPITHELIAL CELLS (test code=EPIU) None seen per HPF FEW UA BACTERIA (test code=BACU) NONE SEEN #/HPF NONE UA MUCUS (test code=MUCU) FEW #/LPF FEW Urine Source? Clean CatchDRUGS OF ABUSE SCREEN [id number] 06:43:00* Test Item Value Reference Range Comments URN COCAINE (test code=COCAURN) NEGATIVE <300 ng/mL URN CANNABINOIDS (test code=CANNABURN) NEGATIVE <50 ng/mL URN AMPHETAMINE (test code=AMPHETURN) NEGATIVE <1000 ng/mL URN BARBITURATE (test code=BARBITURN) NEGATIVE <200 ng/mL URN BENZODIAZEPINE (test code=BENZOURN) NEGATIVE <200 ng/mL URN OPIATES (test code=OPIATURN) NEGATIVE <300 ng/mL URN PHENCYCLIDINE (PCP) (test code=PHENCURN) NEGATIVE <25 ng/mL URN METHADONE (test code=METHAURN) NEGATIVE <300 ng/mL Urine Source? Clean CatchURINALYSIS [id number] 06:00:00* Test Item Value Reference Range Comments UA COLOR (test code=COLU) YELLOW YELLOW UA APPEARANCE (test code=APPU) CLEAR CLEAR UA GLUCOSE DIPSTICK (test code=DGLUU) NEGATIVE mg/dL NEGATIVE UA BILIRUBIN DIPSTICK (test code=BILU) NEGATIVE mg/dL NEGATIVE UA KETONE DIPSTICK (test code=KETU) 10 (1+) mg/dL NEGATIVE UA SPECIFIC GRAVITY (test code=SGU) 1.021 1.001-1.035 UA BLOOD DIPSTICK (test code=RUBEN) Negative mg/dL NEGATIVE UA PH DIPSTICK (test code=OFELIA) 6.5 5.0-8.0 UA PROTEIN DIPSTICK (test code=PROU) 20 (Trace) mg/dL NEGATIVE UA UROBILINIOGEN DIPSTICK (test code=URO) Normal mg/dL NEGATIVE UA NITRITE DIPSTICK (test code=DIPTI) NEGATIVE NEGATIVE UA LEUKOCYTE ESTERASE W REFLEX (test code=LEUUR) NEGATIVE Maxi/uL NEGATIVE UA WBC (test code=WBCU) 0-5 per HPF 0-5 UA RBC (test code=RBCU) 0-2 #/HPF 0-5 UA EPITHELIAL CELLS (test code=EPIU) None seen per HPF FEW UA BACTERIA (test code=BACU) NONE SEEN #/HPF NONE UA MUCUS (test code=MUCU) FEW #/LPF FEW Urine Source? Clean CatchDRUGS OF ABUSE SCREEN [id number] 06:00:00* Test Item Value Reference Range Comments URN COCAINE (test code=COCAURN) <300 ng/mL URN CANNABINOIDS (test code=CANNABURN) <50 ng/mL URN AMPHETAMINE (test code=AMPHETURN) <1000 ng/mL URN BARBITURATE (test code=BARBITURN) <200 ng/mL URN BENZODIAZEPINE (test code=BENZOURN) <200 ng/mL URN OPIATES (test code=OPIATURN) <300 ng/mL URN PHENCYCLIDINE (PCP) (test code=PHENCURN) <25 ng/mL URN METHADONE (test code=METHAURN) <300 ng/mL Urine Source? Clean Catch- XR CHEST 1 [id number] 01:19:00 FAX: Sabiha Moreira [phone] [place]: St: REG Name: AMNA CONTRERAS [facility] : [birth year] Age/S: 63/M [address] [facility] Unit #: [id number] Loc: [place] [address] Phys: Sabiha Lobo MD Acct: [id number] Dis Date: Status: REG ER PHONE #: [phone] Exam Date: 05/27/2019 0116 FAX #: [phone] Reason: hypoxia EXAMS: CPT CODE: [id number] XR CHEST 1 V 01485 LOCATION: Q15 HISTORY: 63-year-old male who is hypoxic. COMMENT: A frontal chest radiograph was obtained at 1:14 a.m., and is compared to a prior study of November 12, 2013. There is now moderate elevation of left hemidiaphragm with atelectasis seen in the left lung base. The left upper lung zone is clear as is the right lung. The cardiac silhou ette, don, and mediastinum are unremarkable. The skeleton and soft tissue s are unremarkable. Cardiac monitoring leads are present. IMPRESSION: There is no radiographic evidence of acute cardiopulmonary disease. Moderate elevation of the left hemidiaphragm is noted with atelectasis seen in the left lung base. at 0119 Reported and signed by: Terri Rubin M.D. CC: Sabiha Lobo MD Technologist: Fabi Tesfaye Trnscrd Date/Time/By: 05/27/2019 (0119) : By: [email or web address] Orig Print D /T: S: 05/27/2019 (0122) PAGE 1 S igned Report [id number] 01:18:00* Test Item Value Reference Range Comments GLUBED (test code=GLUBED) 124 mg/dL 74-106 Performed by certified wire twisting machine operator at [facility] BASIC METABOLIC [id number] 22:13:00* Test Item Value Reference Range Comments SODIUM (test code=NA) 140 mmol/L 136-145 POTASSIUM (test code=K) 3.7 mmol/L 3.5-5.1 CHLORIDE (test code=CL) 109.0 mmol/L 98-107 CARBON DIOXIDE (test code=CO2) 25.0 mmol/L 21-32 ANION GAP (test code=GAP) 9.7 10-20 GLUCOSE (test code=GLU) 99 mg/dL 74-106 BLOOD UREA NITROGEN (test code=BUN) 27 mg/dL 7-18 GLOMERULAR FILTRATION RATE (test code=GFR) 41 mL/min >=60 Estimated GFR by using Modified MDRD formula.Chronic kidney disease is defined as either kidney damageor GFR <60 mL/min/1.73 m2 for >3 months. CREATININE (test code=CREAT) 1.70 mg/dL 0.7-1.3 BUN/CREATININE RATIO (test code=BUN/CREA) 15.8 10-20 CALCIUM (test code=CA) 9.3 mg/dL 8.5-10.1 HEPATIC FUNCTION [id number] 22:13:00* Test Item Value Reference Range Comments TOTAL PROTEIN (test code=PROT) 6.8 gram/dL 6.4-8.2 ALBUMIN (test code=ALB) 3.6 g/dL 3.4-5.0 GLOBULIN (test code=GLOB) 3.2 gram/dL 2.7-4.2 ALBUMIN/GLOBULIN RATIO (test code=A/G) 1.1 0.75-1.50 BILIRUBIN TOTAL (test code=BILT) 0.50 mg/dL 0.0-1.0 BILIRUBIN DIRECT (test code=BILD) 0.15 mg/dL 0.0-0.20 SGOT/AST (test code=AST) 8 IUnit/L 15-37 SGPT/ALT (test code=ALT) 22 IUnit/L 12-78 ALKALINE PHOSPHATASE TOTAL (test code=ALKP) 159 IUnit/L 45-117 Note change in reference range due to change in reagent. [id number] 22:13:00* Test Item Value Reference Range Comments LITHIUM (test code=LITH) 2.5 mmol/L 0.5-1.5 [id number] 22:13:00* Test Item Value Reference Range Comments ALCOHOL (test code=ALC) < 3 mg/dL 0.0-3.0 INTERPRETIVE DATA NOTE: POSITIVE SCREENING RESULTS SHOULD BE CONSIDERED PRESUMPTIVE.WHEN COLLECTED FOR MEDICAL PURPOSES ONLY. SPECIMEN WILL NOTBE COLLECTED BY CHAIN OF CUSTODY.IF A CONFIRMATION OF POSITIVE RESULTS IS DESIRED, ACONFIRMATION TEST MUST BE REQUESTED BY THE PHYSICIAN AT ANADDITIONAL CHARGE TO THE PATIENT. BASIC METABOLIC [id number] 22:02:00* Test Item Value Reference Range Comments SODIUM (test code=NA) 140 mmol/L 136-145 POTASSIUM (test code=K) 3.7 mmol/L 3.5-5.1 CHLORIDE (test code=CL) 109.0 mmol/L 98-107 CARBON DIOXIDE (test code=CO2) 25.0 mmol/L 21-32 ANION GAP (test code=GAP) 9.7 10-20 GLUCOSE (test code=GLU) 99 mg/dL 74-106 BLOOD UREA NITROGEN (test code=BUN) 27 mg/dL 7-18 GLOMERULAR FILTRATION RATE (test code=GFR) 41 mL/min >=60 Estimated GFR by using Modified MDRD formula.Chronic kidney disease is defined as either kidney damageor GFR <60 mL/min/1.73 m2 for >3 months. CREATININE (test code=CREAT) 1.70 mg/dL 0.7-1.3 BUN/CREATININE RATIO (test code=BUN/CREA) 15.8 10-20 CALCIUM (test code=CA) 9.3 mg/dL 8.5-10.1 HEPATIC FUNCTION [id number] 22:02:00* Test Item Value Reference Range Comments TOTAL PROTEIN (test code=PROT) 6.8 gram/dL 6.4-8.2 ALBUMIN (test code=ALB) 3.6 g/dL 3.4-5.0 GLOBULIN (test code=GLOB) 3.2 gram/dL 2.7-4.2 ALBUMIN/GLOBULIN RATIO (test code=A/G) 1.1 0.75-1.50 BILIRUBIN TOTAL (test code=BILT) 0.50 mg/dL 0.0-1.0 BILIRUBIN DIRECT (test code=BILD) 0.15 mg/dL 0.0-0.20 SGOT/AST (test code=AST) 8 IUnit/L 15-37 SGPT/ALT (test code=ALT) 22 IUnit/L 12-78 ALKALINE PHOSPHATASE TOTAL (test code=ALKP) 159 IUnit/L 45-117 Note change in reference range due to change in reagent. [id number] 22:02:00* Test Item Value Reference Range Comments LITHIUM (test code=LITH) mmol/L 0.5-1.5 [id number] 22:02:00* Test Item Value Reference Range Comments ALCOHOL (test code=ALC) < 3 mg/dL 0.0-3.0 INTERPRETIVE DATA NOTE: POSITIVE SCREENING RESULTS SHOULD BE CONSIDERED PRESUMPTIVE.WHEN COLLECTED FOR MEDICAL PURPOSES ONLY. SPECIMEN WILL NOTBE COLLECTED BY CHAIN OF CUSTODY.IF A CONFIRMATION OF POSITIVE RESULTS IS DESIRED, ACONFIRMATION TEST MUST BE REQUESTED BY THE PHYSICIAN AT ANADDITIONAL CHARGE TO THE PATIENT. BASIC METABOLIC [id number] 21:55:00* Test Item Value Reference Range Comments SODIUM (test code=NA) 140 mmol/L 136-145 POTASSIUM (test code=K) 3.7 mmol/L 3.5-5.1 CHLORIDE (test code=CL) 109.0 mmol/L 98-107 CARBON DIOXIDE (test code=CO2) mmol/L 21-32 ANION GAP (test code=GAP) 10-20 GLUCOSE (test code=GLU) mg/dL 74-106 BLOOD UREA NITROGEN (test code=BUN) mg/dL 7-18 GLOMERULAR FILTRATION RATE (test code=GFR) mL/min >=60 CREATININE (test code=CREAT) mg/dL 0.7-1.3 BUN/CREATININE RATIO (test code=BUN/CREA) 10-20 CALCIUM (test code=CA) mg/dL 8.5-10.1 HEPATIC FUNCTION [id number] 21:55:00* Test Item Value Reference Range Comments TOTAL PROTEIN (test code=PROT) gram/dL 6.4-8.2 ALBUMIN (test code=ALB) g/dL 3.4-5.0 GLOBULIN (test code=GLOB) gram/dL 2.7-4.2 ALBUMIN/GLOBULIN RATIO (test code=A/G) 0.75-1.50 BILIRUBIN TOTAL (test code=BILT) mg/dL 0.0-1.0 BILIRUBIN DIRECT (test code=BILD) mg/dL 0.0-0.20 SGOT/AST (test code=AST) IUnit/L 15-37 SGPT/ALT (test code=ALT) IUnit/L 12-78 ALKALINE PHOSPHATASE TOTAL (test code=ALKP) IUnit/L 45-117 [id number] 21:55:00* Test Item Value Reference Range Comments LITHIUM (test code=LITH) mmol/L 0.5-1.5 [id number] 21:55:00* Test Item Value Reference Range Comments ALCOHOL (test code=ALC) mg/dL 0-3 CBC W/O [id number] 21:53:00* Test Item Value Reference Range Comments WHITE BLOOD CELL (test code=WBC) 15.1 K/mm3 4.5-12.5 RED BLOOD CELL (test code=RBC) 4.24 mill/mm3 4.0-5.8 HEMOGLOBIN (test code=HGB) 12.3 gram/dL 13.0-17.5 HEMATOCRIT (test code=HCT) 39.1 % 42.0-52.0 MEAN CELL VOLUME (test code=MCV) 92.2 fL 80-98 MEAN CELL HGB (test code=MCH) 29.0 picogram 27.0-33.0 MEAN CELL HGB CONCETRATION (test code=MCHC) 31.5 gram/dL 33.0-36.0 RED CELL DISTRIBUTION WIDTH (test code=RDW) 13.1 % 11.6-16.2 PLATELET COUNT (test code=PLT) 283 K/mm3 150-450 MEAN PLATELET VOLUME (test code=MPV) 9.6 fL 6.7-11.0 - CT HEAD/BRAIN W/O [id number] 21:44:00 Name: AMNA BERKOWITZ [facility] : 1955 Age/S: 63 / M [address] [facility] Unit #: [id number] Loc: [place] [address] Phys: Sabiha Lobo MD Acct: [id number] Dis Date: Status: REG ER PHONE #: [phone] Exam Date: 05/26/20192138 FAX #: [phone] Reason: ams EXAMS: CPT CODE: [id number] CT HEAD/BRAIN W/O CONT 91067 REASON FOR EXAM: ams EXAM ORDER DATE: 05/26/2019 9:09 PM Ordering M.D.: Sabiha Lobo MD PROCEDURE: - CT HEAD/BRAIN W/O CONT COMPARISON: FINDINGS: CT images of the brain were obtained without IV contrast. Dose modulation, iterative reconstruction, and/or weight based adjustment of the MA/KV was utilized to reduce the radiation dose to as low as reasonably achievable. The brain parenchyma is within normal limits. The salas-white matter delineation is unremarkable. The ventricles, cisterns, and sulci are unremarkable. There is no evidence of hemorrhage, mass, mass effect. There is no evidence of acute or old infarct. The calvarium is intact. IMPRESSION: Unremarkable brain. at 6703 Reported and signed by: Xavi Nugent M.D. CC: Sabiha Lobo MD Technologist:Stephie Barnard RT(R); MARQUITA Ross CTDI: DLP: Trnscb Date/Time: 05/26/2019 (2143) VanessaL Orig Print D/T: S: 05/26/2019 (2146) PAGE 1 Signed Report
--- NOTE | 2019-06-11 09:50 | Diagnostic Imaging Report ---
EXAMINATION: Head CT HISTORY: Fall, trauma, bipolar. COMPARISON: None. TECHNIQUE: Multidetector axial images were obtained without contrast from the foramen magnum to the vertex . The images were reconstructed using brain and bone algorithms. Thin section brain images were reformatted into coronal and sagittal planes. Image quality: Motion/streaking artifact limits the evaluation of the skull base and posterior cranial fossa. Dose modulation, iterative reconstruction, and/or weight based adjustment of the mA/kV was utilized to reduce the radiation dose to as low as reasonably achievable. FINDINGS: Parenchyma: 1. No abnormal densities. 2. No mass or hemorrhage. No CT evidence of acute territorial vascular insult. Extra-axial spaces:No abnormal density. No extra-axial fluid collections Brain volume: Normal for age. Ventricles: No hydrocephalus or displacement. Arteries: No density suggestive of thrombus. Dural sinuses: No abnormal density. Extra-axial spaces: No abnormal density. Foramen magnum: No mass, Chiari malformation, or basilar invagination. Sella: No obvious mass. Paranasal/mastoid sinuses: Imaged portions unremarkable. Skull/Scalp: No lytic or blastic lesions. No fractures. IMPRESSION: No intracranial abnormalities. Signed by: Dr. Dorothea Iglesias M.D. on 06/11/2019 9:47 AM
[2019-06-11 10:55] VITALS: BP 122/81
== END 2019-06-11 11:20 | disposition home or self-care (01) ==
LOC: ER 08:13
DX: S09.90XA Unspecified injury of head, initial encounter (principal); W01.198A Fall on same level from slipping, tripping and stumbling with subsequent striking against other object, initial encounter; Y93.9 Activity, unspecified; Y92.238 Other place in hospital as the place of occurrence of the external cause; F25.0 Schizoaffective disorder, bipolar type; F41.9 Anxiety disorder, unspecified; I10 Essential (primary) hypertension; J44.9 Chronic obstructive pulmonary disease, unspecified; Z87.891 Personal history of nicotine dependence; F41.8 Other specified anxiety disorders
CPT/HCPCS: 70450; 99283